=== PATIENT | female | born 2000 ===

== ENCOUNTER 2018-12-03 00:41 | Observation (INO) | payer BC ==
[2018-12-03] MEDS ORDERED: Methylergonovine 0.2 MG/1 ML Amp IM PRN (01:04)
[2018-12-03] MEDS ORDERED: Sodium Chloride 0.9% 10 ML SDV IV PRN (01:04)
[2018-12-03] MEDS ORDERED: Terbutaline 1 MG/ML SDV SUBCUT PRN (01:04)
[2018-12-03] MEDS ORDERED: Tranexamic Acid 1,000 MG in Sodium Chloride 0.9% 100 ML IV PRN (01:04)
[2018-12-03] MEDS ORDERED: Carboprost Tromethamine 250 MCG/1 ML Amp IM PRN (01:04)
[2018-12-03] MEDS ORDERED: Nalbuphine 10 MG/1 ML Vial IVPUSH PRN (01:04)
[2018-12-03] MEDS ORDERED: Ondansetron 4 MG/2 ML SDV IV PRN (01:04)
[2018-12-03] MEDS ORDERED: Misoprostol 200 MCG Tab PO PRN (01:04)
[2018-12-03] MEDS ORDERED: Sodium Chloride 0.9% 10 ML Syringe FLUSH PRN (01:04)
[2018-12-03] MEDS ORDERED: Water For Irrigation,Sterile 1,000 ML Container IRR PRN (01:04)
[2018-12-03] MEDS ORDERED: Lidocaine 1% 50 ML MDV INJECT PRN (01:04)
[2018-12-03] MEDS ORDERED: Lactated Ringers 1,000 ML IV SCH (01:15)
[2018-12-03] MEDS ORDERED: Oxytocin/0.9 % Sodium Chloride 30 UNIT/500 ML BAG IV SCH ×2 (01:15)
[2018-12-03] MEDS: Misoprostol 25 MCG (1/4 of 100 MCG) Tab VAG PRN ×5 (01:25→23:57)
[2018-12-03] MEDS: Misoprostol 25 MCG (1/4 of 100 MCG) Tab PO PRN ×6 (01:26→23:55)
[2018-12-03] MEDS ORDERED: Diphtheria,Pertussis(Acell),Tetanus Vaccine 0.5 ML Syringe IM ONE (01:50)
--- NOTE | 2018-12-03 08:25 | PCM.LDHP ---
L&D History of Present Illness - General Date of Service: 12/03/18 Admit Problem/Dx: Patient Status Order with Admit Dx/Problem 12/03/18 01:04 Patient Status [ADT] Routine Admission Diagnosis/Problem Admission Diagnosis/Problem -related examination Source of Information: Patient History Limitations: Reports: No Limitations - History of Present Illness Improves with: Reports: None Worsens with: Reports: None Associated Symptoms: Reports: N - Related Data Allergies/Adverse Reactions: Allergies Allergy/AdvReac Type Severity Reaction Status Date / Time No Known Allergies Allergy Verified 12/03/18 01:03 Past Medical History - Past Health History Medical/Surgical History: Denies Medical/Surgical History Social & Family History - Family History Family Medical History: Noncontributory - Tobacco Use Smoking Status *Q: Never Smoker Second Hand Smoke Exposure: No - Caffeine Use Caffeine Use: Reports: Soda - Recreational Drug Use Recreational Drug Use: No H&P Review of Systems - Review of Systems: Review Of Systems: See Below General: Reports: No Symptoms HEENT: Reports: No Symptoms Pulmonary: Reports: No Symptoms Cardiovascular: Reports: No Symptoms Gastrointestinal: Reports: No Symptoms Genitourinary: Reports: No Symptoms 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: Reports: No Symptoms Skin: Reports: No Symptoms Psychiatric: Reports: No Symptoms Neurological: Reports: No Symptoms Hematologic/Lymphatic: Reports: No Symptoms Immunologic: Reports: No Symptoms L&D Exam - Exam Exam: See Below - Vital Signs Weight: 80.286 kg - OB Specific Fundal Height In cm: 36 Contraction Intensity: Mild to Moderate Movement: Active Heart Tones: Present Presentation: Vertex - Lund Score Lnud Score Cervix Position: Anterior Lund Score Consistency: Soft Lund Score Effacement: >80% Lund Score Dilation: 1-2 cm Lund Score Infant's Station: -3 Lund Score Total: 8 - Exam General: Alert, Oriented HEENT: PERRLA, Conjunctiva Clear, EACs Clear, EOMI, Hearing Intact, Mucosa Moist & [place] Panorama, Nares Patent, Normal Nasal Septum, Posterior Pharynx Clear, TMs Clear Neck: Supple, Trachea Midline Lungs: Clear to Auscultation, Normal Respiratory Effort Cardiovascular: Regular Rate, Regular Rhythm GI/Abdominal Exam: Normal Bowel Sounds, Soft, Non-Tender, No Organomegaly, No Distention, No Abnormal Bruit, No Mass, Pelvis Stable Rectal Exam: Normal Exam, Normal Rectal Tone Genitourinary: Normal external exam, Normal bimanual exam, Normal speculum exam Back Exam: Normal Inspection, Full Range of Motion Extremities: Normal Inspection, Normal Range of Motion, Non-Tender, No Pedal Edema, Normal Capillary Refill Skin: Warm, Dry, Intact Neurological: Cranial Nerves Intact, Reflexes Equal Bilateral Psychiatric: Alert, Normal Affect, Normal Mood - Patient Data Lab Results Last 24 hrs: Laboratory Results - last 24 hr 12/03/18 12/03/18 Range/Units 01:30 01:30 WBC 8.83 (4.0-11.0) K/uL RBC 3.46 L (4.30-5.90) M/uL Hgb 11.4 L (12.0-16.0) g/dL Hct 32.5 L (36.0-46.0) % MCV 93.9 (80.0-98.0) fL MCH 32.9 H (27.0-32.0) pg MCHC 35.1 (31.0-37.0) g/dL RDW Std Deviation 41.5 (28.0-62.0) fl RDW Coeff of Addison 13 (11.0-15.0) % Plt Count 146 L (150-400) K/uL MPV 10.80 (7.40-12.00) fL Blood Type O POSITIVE Antibody Screen NEGATIVE Result Diagrams: 12/03/18 01:30 Problem List Initiated/Reviewed/Updated: Yes Orders Last 24hrs: Active Orders 24 hr Category Date Time Status Patient Status [ADT] Routine ADT 12/03/18 01:04 Active Bedrest Bathroom Privileges [RC] ASDIRECTED Care 12/03/18 01:04 Active Communication Order [RC] ASDIRECTED Care 12/03/18 01:04 Active Communication Order [RC] ASDIRECTED Care 12/03/18 01:04 Active Communication Order [RC] ASDIRECTED Care 12/03/18 01:04 Active Heart Tones [RC] CONTINUOUS Care 12/03/18 01:04 Active Non Stress Test [RC] PER UNIT ROUTINE Care 12/03/18 01:04 Active Notify Provider [RC] PRN Care 12/03/18 01:04 Active Notify Provider [RC] PRN Care 12/03/18 01:04 Active Notify Provider [RC] PRN Care 12/03/18 01:04 Active Notify Provider [RC] STAT Care 12/03/18 01:04 Active Oxygen Therapy [RC] ASDIRECTED Care 12/03/18 01:04 Active Vaccines to be Administered [RC] PER UNIT ROUTINE Care 12/03/18 01:50 Active Vaginal Exam [RC] PRN Care 12/03/18 01:04 Active Vaginal Exam [RC] PRN Care 12/03/18 01:04 Active Vital Signs [RC] PER UNIT ROUTINE Care 12/03/18 01:04 Active Regular Diet [DIET] Diet 12/03/18 Breakfast Active Carboprost Tromethamine [Hemabate DS] Med 12/03/18 01:04 Active 250 mcg IM ASDIRECTED PRN Lactated Ringers [Ringers, Lactated] 1,000 ml Med 12/03/18 01:15 Active IV ASDIRECTED Lidocaine 1% [Xylocaine 1%] Med 12/03/18 01:04 Active 50 ml INJECT ONETIME PRN Methylergonovine [Methergine] Med 12/03/18 01:04 Active 0.2 mg IM ASDIRECTED PRN Nalbuphine [Nubain] Med 12/03/18 01:04 Active 10 mg IVPUSH ASDIRECTED PRN Ondansetron [Zofran] Med 12/03/18 01:04 Active 4 mg IV Q6H PRN Oxytocin/0.9 % Sodium Chloride [Oxytocin 30 Unit/500 ML Med 12/03/18 01:15 Active -NS] 30 unit in 500 ml IV TITRATE Oxytocin/0.9 % Sodium Chloride [Oxytocin 30 Unit/500 ML Med 12/03/18 01:15 Active -NS] 30 unit in 500 ml IV TITRATE Sodium Chloride 0.9% [Normal Saline] Med 12/03/18 01:04 Active 10 ml IV ASDIRECTED PRN Sodium Chloride 0.9% [Saline Flush] Med 12/03/18 01:04 Active 10 ml FLUSH ASDIRECTED PRN Terbutaline [Brethine] Med 12/03/18 01:04 Active 0.25 mg SUBCUT ASDIRECTED PRN Tranexamic Acid [Cyklokapron] 1,000 mg Med 12/03/18 01:04 Active Sodium Chloride 0.9% [Normal Saline] 100 ml IV ONETIME Water For Irrigation,Sterile [Sterile Water for Med 12/03/18 01:04 Active Irrigation] 1,000 ml IRR ASDIRECTED PRN miSOPROStol [Cytotec] Med 12/03/18 01:04 Active 200 mcg PO ONETIME PRN miSOPROStol [Cytotec] Med 12/03/18 01:04 Active 25 mcg PO Q4H PRN miSOPROStol [Cytotec] Med 12/03/18 01:04 Active 25 mcg VAG Q4H PRN Scalp Electrode [WOMSER] Per Unit Routine Oth 12/03/18 01:04 Ordered Medication Administration Instruction [OM.PC] Q3H Oth 12/03/18 01:15 Ordered Peripheral IV Insertion Adult [OM.PC] Routine Oth 12/03/18 01:04 Ordered Resuscitation Status Routine Resus Stat 12/03/18 01:04 Ordered Medication Orders Carboprost Tromethamine (Hemabate Ds) 250 mcg IM ASDIRECTED PRN PRN Reason: Post Hemorrhage Lactated Ringer's (Ringers, Lactated) 1,000 mls @ 150 mls/hr IV ASDIRECTED JHONATHAN Oxytocin/Sodium Chloride (Oxytocin 30 Unit/500 Ml-Ns) 30 unit in 500 mls @ 999 mls/hr IV TITRATE JHONATHAN Oxytocin/Sodium Chloride (Oxytocin 30 Unit/500 Ml-Ns) 30 unit in 500 mls @ 2 mls/hr IV TITRATE JHONATHAN; Protocol Tranexamic Acid 1,000 mg/ (Sodium Chloride) 110 mls @ 660 mls/hr IV ONETIME PRN PRN Reason: Bleeding Lidocaine HCl (Xylocaine 1%) 50 ml INJECT ONETIME PRN PRN Reason: Laceration repair Methylergonovine Maleate (Methergine) 0.2 mg IM ASDIRECTED PRN PRN Reason: Post Hemorrhage Misoprostol (Cytotec) 200 mcg PO ONETIME PRN PRN Reason: Post Hemorrhage Misoprostol (Cytotec) 25 mcg PO Q4H PRN PRN Reason: Cervical Ripening Last Admin: 12/03/18 05:47 Dose: 25 mcg Admin: 12/03/18 01:26 Dose: 25 mcg Misoprostol (Cytotec) 25 mcg VAG Q4H PRN PRN Reason: Cervical Ripening Last Admin: 12/03/18 05:44 Dose: 25 mcg Admin: 12/03/18 01:25 Dose: 25 mcg Nalbuphine HCl (Nubain) 10 mg IVPUSH ASDIRECTED PRN PRN Reason: Pain (severe 7-10) Ondansetron HCl (Zofran) 4 mg IV Q6H PRN PRN Reason: Nausea/Vomiting Sodium Chloride (Saline Flush) 10 ml FLUSH ASDIRECTED PRN PRN Reason: Keep Vein Open Sodium Chloride (Normal Saline) 10 ml IV ASDIRECTED PRN PRN Reason: IV Use Sterile Water (Sterile Water For Irrigation) 1,000 ml IRR ASDIRECTED PRN PRN Reason: delivery Terbutaline Sulfate (Brethine) 0.25 mg SUBCUT ASDIRECTED PRN PRN Reason: Tacysystole Assessment/Plan Comment:: IUP 40 weeks admitted for social elective induction
[2018-12-04] MEDS: Misoprostol 25 MCG (1/4 of 100 MCG) Tab PO PRN (04:35)
[2018-12-04] MEDS: Misoprostol 25 MCG (1/4 of 100 MCG) Tab VAG PRN (04:37)
--- NOTE | 2018-12-04 08:16 | PCM.DCSUM1 ---
Discharge Summary - Hospital Course Free Text/Narrative:: discharge home, follow up with Dr. Robbins next Saturday (12/08/18) @ 1115, Routine labor precautions given verbal and written Diagnosis: Stroke: No Modified Vanessa Scale: No Symptoms at All Modified Vanessa Scale Score: 0 - Discharge Data Discharge Date: 12/04/18 Discharge Disposition: Home, Self-Care 01 Condition: Good - Discharge Diagnosis/Problem(s) (1) IUP (intrauterine ), incidental SNOMED Code(s): 66068941 ICD Code: Z34.90 - ENCNTR FOR SUPRVSN OF NORMAL , UNSP, UNSP TRIMESTER Status: Acute Priority: High Current Visit: Yes - Patient Instructions Diet: Usual Diet as Tolerated Activity: As Tolerated Driving: May Drive Today Showering/Bathing: May Shower - Discharge Plan *PRESCRIPTION DRUG MONITORING PROGRAM REVIEWED*: Not Applicable *COPY OF PRESCRIPTION DRUG MONITORING REPORT IN PATIENT AGNES: Not Applicable Oxygen Therapy Mode: Room Air Referrals: [facility] [Outside] Rigoberto Robbins MD [Physician] - 01/14/19 3:00 pm - Discharge Summary/Plan Comment DC Time >30 min.: Yes - General Info Date of Service: 12/04/18 Admission Dx/Problem (Free Text: Patient Status Order with Admit Dx/Problem 12/03/18 01:04 Patient Status [ADT] Routine Admission Diagnosis/Problem Admission Diagnosis/Problem -related examination Functional Status: Reports: Pain Controlled - Review of Systems General: Reports: No Symptoms HEENT: Reports: No Symptoms Pulmonary: Reports: No Symptoms Cardiovascular: Reports: No Symptoms Gastrointestinal: Reports: No Symptoms Genitourinary: Reports: No Symptoms 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: Reports: No Symptoms Skin: Reports: No Symptoms Neurological: Reports: No Symptoms Psychiatric: Reports: No Symptoms - Patient Data Weight - Most Recent: 80.286 kg Med Orders - Current: Current Medications Carboprost Tromethamine (Hemabate Ds) 250 mcg IM ASDIRECTED PRN PRN Reason: Post Hemorrhage Lactated Ringer's (Ringers, Lactated) 1,000 mls @ 150 mls/hr IV ASDIRECTED JHONATHAN Oxytocin/Sodium Chloride (Oxytocin 30 Unit/500 Ml-Ns) 30 unit in 500 mls @ 999 mls/hr IV TITRATE JHONATHAN Oxytocin/Sodium Chloride (Oxytocin 30 Unit/500 Ml-Ns) 30 unit in 500 mls @ 2 mls/hr IV TITRATE JHONATHAN; Protocol Tranexamic Acid 1,000 mg/ (Sodium Chloride) 110 mls @ 660 mls/hr IV ONETIME PRN PRN Reason: Bleeding Lidocaine HCl (Xylocaine 1%) 50 ml INJECT ONETIME PRN PRN Reason: Laceration repair Methylergonovine Maleate (Methergine) 0.2 mg IM ASDIRECTED PRN PRN Reason: Post Hemorrhage Misoprostol (Cytotec) 200 mcg PO ONETIME PRN PRN Reason: Post Hemorrhage Misoprostol (Cytotec) 25 mcg PO Q4H PRN PRN Reason: Cervical Ripening Last Admin: 12/04/18 04:35 Dose: 25 mcg Misoprostol (Cytotec) 25 mcg VAG Q4H PRN PRN Reason: Cervical Ripening Last Admin: 12/04/18 04:37 Dose: 25 mcg Nalbuphine HCl (Nubain) 10 mg IVPUSH ASDIRECTED PRN PRN Reason: Pain (severe 7-10) Ondansetron HCl (Zofran) 4 mg IV Q6H PRN PRN Reason: Nausea/Vomiting Sodium Chloride (Saline Flush) 10 ml FLUSH ASDIRECTED PRN PRN Reason: Keep Vein Open Sodium Chloride (Normal Saline) 10 ml IV ASDIRECTED PRN PRN Reason: IV Use Sterile Water (Sterile Water For Irrigation) 1,000 ml IRR ASDIRECTED PRN PRN Reason: delivery Terbutaline Sulfate (Brethine) 0.25 mg SUBCUT ASDIRECTED PRN PRN Reason: Tacysystole Discontinued Medications Diphtheria/Tetanus/Acell Pertussis (Adacel) 0.5 ml IM .ONCE ONE Stop: 12/03/18 01:51 - Exam General: Reports: Alert, Oriented, Cooperative, No Acute Distress Lungs: Reports: Clear to Auscultation, Normal Respiratory Effort Cardiovascular: Reports: Regular Rate, Regular Rhythm GI/Abdominal Exam: Soft, Non-Tender (Female) Exam: Deferred Rectal (Female) Exam: Deferred Back Exam: Reports: Full Range of Motion Extremities: Normal Range of Motion Skin: Reports: Warm, Dry, Intact Neurological: Reports: No New Focal Deficit Psy/Mental Status: Reports: Alert, Normal Affect, Normal Mood
== END 2018-12-04 08:40 | disposition home or self-care (01) ==
LOC: MW.OBCHECK 00:41 → MW.OB 01:02
PROVIDERS: ADMIT Obstetrics & Gynecology; ATTEND Obstetrics & Gynecology
DX: Z34.93 Encounter for supervision of normal pregnancy, unspecified, third trimester (principal); Z3A.40 40 weeks gestation of pregnancy
CPT/HCPCS: 36415; 59025; 85027; 86850; 86900; 86901; A9270; G0378

== ENCOUNTER 2018-12-12 09:45 | Inpatient (IN) | payer BC ==
[2018-12-12] MEDS ORDERED: Butorphanol 1 MG/ML SDV IVPUSH PRN (11:11)
[2018-12-12] MEDS ORDERED: Sodium Chloride 0.9% 10 ML SDV IV PRN (11:11)
[2018-12-12] MEDS ORDERED: Sodium Chloride 0.9% 2.5 ML Syringe FLUSH PRN (11:11)
[2018-12-12] MEDS ORDERED: Water For Irrigation,Sterile 1,000 ML Container IRR PRN (11:11)
[2018-12-12] MEDS ORDERED: Tranexamic Acid 1,000 MG in Sodium Chloride 0.9% 100 ML IV PRN (11:11)
[2018-12-12] MEDS ORDERED: Lidocaine 1% 50 ML MDV INJECT PRN (11:11)
[2018-12-12] MEDS ORDERED: Methylergonovine 0.2 MG/1 ML Amp IM PRN (11:11)
[2018-12-12] MEDS ORDERED: Sodium Chloride 0.9% 10 ML Syringe FLUSH PRN (11:11)
[2018-12-12] MEDS ORDERED: Misoprostol 200 MCG Tab PO PRN (11:11)
[2018-12-12] MEDS ORDERED: Nalbuphine 10 MG/1 ML Vial IVPUSH PRN (11:11)
[2018-12-12] MEDS ORDERED: Carboprost Tromethamine 250 MCG/1 ML Amp IM PRN (11:11)
[2018-12-12] MEDS ORDERED: Oxytocin/0.9 % Sodium Chloride 30 UNIT/500 ML BAG IV SCH ×2 (11:15→11:30)
[2018-12-12] MEDS ORDERED: Terbutaline 1 MG/ML SDV SUBCUT PRN (11:19)
[2018-12-12] MEDS: Lactated Ringers 1,000 ML IV SCH ×3 (12:02→23:50)
[2018-12-12] MEDS ORDERED: Ondansetron 4 MG/2 ML SDV IVPUSH PRN (16:05)
[2018-12-13] MEDS ORDERED: Ropivacaine HCl/PF 100 ML ONE (00:02)
--- NOTE | 2018-12-13 00:25 | PCM.PREANE ---
Preanesthetic Assessment - Anesthesia/Transfusion/Family Hx Anesthesia History: No Prior Anesthesia Family History of Anesthesia Reaction: No Transfusion History: No Prior Transfusion(s) - Review of Systems General: No Symptoms Pulmonary: No Symptoms Cardiovascular: No Symptoms, Lightheadedness Gastrointestinal: No Symptoms Neurological: No Symptoms Other: Reports: None - Physical Assessment NPO Status Date: 12/12/18 NPO Status Time: 20:00 Height: 1.75 m Weight: 81.193 kg - Lab Values: Laboratory Last Values WBC 10.11 K/uL (4.0-11.0) 12/12/18 11:45 RBC 3.73 M/uL (4.30-5.90) L 12/12/18 11:45 Hgb 12.0 g/dL (12.0-16.0) 12/12/18 11:45 Hct 34.9 % (36.0-46.0) L 12/12/18 11:45 MCV 93.6 fL (80.0-98.0) 12/12/18 11:45 MCH 32.2 pg (27.0-32.0) H 12/12/18 11:45 MCHC 34.4 g/dL (31.0-37.0) 12/12/18 11:45 RDW Std Deviation 44.2 fl (28.0-62.0) 12/12/18 11:45 RDW Coeff of Addison 13 % (11.0-15.0) 12/12/18 11:45 Plt Count 151 K/uL (150-400) 12/12/18 11:45 MPV 10.10 fL (7.40-12.00) 12/12/18 11:45 Nucleated RBC % 0.0 /100WBC 12/12/18 11:45 Nucleated RBCs # 0 K/uL 12/12/18 11:45 Membrane Rupture POSITIVE 12/12/18 10:04 Blood Type O POSITIVE 12/12/18 11:45 Antibody Screen NEGATIVE 12/12/18 11:45 - Allergies Allergies/Adverse Reactions: Allergies Allergy/AdvReac Type Severity Reaction Status Date / Time No Known Allergies Allergy Verified 12/03/18 01:03 PreAnesthesia Questionnaire - Past Health History Medical/Surgical History: Denies Medical/Surgical History HEENT History: Reports: None Cardiovascular History: Reports: None Respiratory History: Reports: None Gastrointestinal History: Reports: None Genitourinary History: Reports: None GROUP COUNSELOR History: Reports: 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 History: Reports: Fracture Neurological History: Reports: Concussion Psychiatric History: Reports: None Endocrine/Metabolic History: Reports: None Hematologic History: Reports: None Immunologic History: Reports: None Oncologic (Cancer) History: Reports: None Dermatologic History: Reports: None - Infectious Disease History Infectious Disease History: Reports: Chicken Pox - Past Surgical History HEENT Surgical History: Reports: None Respiratory Surgical History: Reports: None GI Surgical History: Reports: None Female Surgical History: Reports: None 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 Surgical History: Reports: None - SUBSTANCE USE Smoking Status *Q: Former Smoker Tobacco Use Within Last Twelve Months: Cigarettes Second Hand Smoke Exposure: No Recreational Drug Use History: No - HOME MEDS Home Medications: Home Meds . [No Known Home Meds] 12/12/18 [History] - CURRENT (IN HOUSE) MEDS Current Meds: Current Medications Butorphanol Tartrate (Stadol) 1 mg IVPUSH Q1H PRN PRN Reason: Pain Last Admin: 12/12/18 15:21 Dose: 1 mg Carboprost Tromethamine (Hemabate Ds) 250 mcg IM ASDIRECTED PRN PRN Reason: Post Hemorrhage Tranexamic Acid 1,000 mg/ (Sodium Chloride) 110 mls @ 660 mls/hr IV ONETIME PRN PRN Reason: Bleeding Lactated Ringer's (Ringers, Lactated) 1,000 mls @ 150 mls/hr IV ASDIRECTED JHONATHAN Last Admin: 12/12/18 16:10 Dose: 150 mls/hr Oxytocin/Sodium Chloride (Oxytocin 30 Unit/500 Ml-Ns) 30 unit in 500 mls @ 500 mls/hr IV TITRATE JHONATHAN Oxytocin/Sodium Chloride (Oxytocin 30 Unit/500 Ml-Ns) 30 unit in 500 mls @ 2 mls/hr IV TITRATE JHONATHAN; Protocol Last Titration: 12/12/18 22:30 Dose: 4 munits/min, 4 mls/hr Lidocaine HCl (Xylocaine 1%) 50 ml INJECT ONETIME PRN PRN Reason: Laceration repair Methylergonovine Maleate (Methergine) 0.2 mg IM ASDIRECTED PRN PRN Reason: Post Hemorrhage Misoprostol (Cytotec) 200 mcg PO ONETIME PRN PRN Reason: Post Hemorrhage Nalbuphine HCl (Nubain) 10 mg IVPUSH Q1H PRN PRN Reason: Pain (severe 7-10) Ondansetron HCl (Zofran) 4 mg IVPUSH Q6H PRN PRN Reason: Nausea/Vomiting Last Admin: 12/12/18 23:14 Dose: 4 mg Sodium Chloride (Saline Flush) 10 ml FLUSH ASDIRECTED PRN PRN Reason: Keep Vein Open Sodium Chloride (Saline Flush) 2.5 ml FLUSH ASDIRECTED PRN PRN Reason: Keep Vein Open Sodium Chloride (Normal Saline) 10 ml IV ASDIRECTED PRN PRN Reason: IV Use Sterile Water (Sterile Water For Irrigation) 1,000 ml IRR ASDIRECTED PRN PRN Reason: delivery Terbutaline Sulfate (Brethine) 0.25 mg SUBCUT ASDIRECTED PRN PRN Reason: Tacysystole Discontinued Medications Ropivacaine (Naropin 0.2%) Confirm Administered Dose 100 mls @ as directed .ROUTE .[facility] ONE Stop: 12/13/18 00:03
--- NOTE | 2018-12-13 00:28 | PCM.PRNOTE ---
- Free Text/Narrative Note: Anes Note 0005 Patient requests epidural for L&D. Sitting position. Level L3-L4, midline approach. Sterile technique. Chloroprep scrub to lumbar area. Sterile fenestrated dape applied. Epidural space easily achieved single attempt with ease using LORI technique. Cath threaded 4 cm with ease. Sterile dressing applied. 0010 test 3 cc 1.5% lido with epi negative 0012 load 10 cc 0.2% ropivicaine in slow divided doses. 0017 pump started. Same solution at 8 cc hr with 6 cc q 20 min prn bolus. Patient reports excellent analgesia. Time with patient [id number] Tiago Galicia CLASSIFIED AD CLERK
[2018-12-13] MEDS ORDERED: Sodium Chloride 0.9% 1,000 ML IRR SCH (03:15)
[2018-12-13] MEDS: Lactated Ringers 1,000 ML IV SCH (06:04)
--- NOTE | 2018-12-13 06:55 | PCM.POSTAN ---
POST ANESTHESIA ASSESSMENT - MENTAL STATUS Mental Status: Alert - RESPIRATORY Respiratory Status: Respiratory Rate WNL - CARDIOVASCULAR CV Status: Pulse Rate WNL - GASTROINTESTINAL GI Status: No Symptoms - POST OP HYDRATION Hydration Status: Adequate & Stable
[2018-12-13] MEDS ORDERED: ceFAZolin 1 GM Vial ONE (07:47)
[2018-12-13] MEDS ORDERED: Sodium Chloride 0.9% 20 ML ONE (07:47)
[2018-12-13] MEDS ORDERED: Ondansetron 4 MG/2 ML SDV ONE (07:50)
[2018-12-13] MEDS ORDERED: Oxytocin 10 Units/1 ML SDV ONE (07:50)
[2018-12-13] MEDS ORDERED: fentaNYL 100 MCG/2 ML SDV ONE (07:51)
[2018-12-13] MEDS ORDERED: Morphine PF 10 MG/10 ML SDV ONE (07:51)
[2018-12-13] MEDS ORDERED: Octyl 2-Cyanoacrylate 1 Tube ONE (07:59)
[2018-12-13] MEDS ORDERED: fentaNYL 100 MCG/2 ML SDV IVPUSH PRN (08:16)
[2018-12-13] MEDS ORDERED: Acetaminophen/oxyCODONE 325-5 MG Tab PO PRN (08:16)
[2018-12-13] MEDS ORDERED: Nalbuphine 10 MG/1 ML Vial IVPUSH PRN (08:16)
--- NOTE | 2018-12-13 08:46 | PCM.OPNOTE ---
- General Post-Op/Procedure Note Date of Surgery/Procedure: 12/13/18 Operative Procedure(s): primary low transverse Findings: Liveborn female Pre Op Diagnosis: 41 3/7 weeks, arrest of dilatation Post-Op Diagnosis: Same Primary Surgeon: Patricia Sofia Secondary Surgeon: China Hooks Anesthesia Provider: Matthew Gastelum Homicide Investigator: Tiago Galicia Pathology: none Fluid Replacement, Intraop: 1,500 Output, Urine Amount: 300 EBL in mLs: 600 Complications: None Known Condition: Good
[2018-12-13] MEDS ORDERED: Bisacodyl 10 MG Supp RECTAL PRN (08:48)
[2018-12-13] MEDS ORDERED: diphenhydrAMINE 50 MG/ML SDV IVPUSH PRN (08:48)
[2018-12-13] MEDS ORDERED: Lanolin 100% Cream 7 GM Tube TOP PRN (08:48)
[2018-12-13] MEDS ORDERED: Ondansetron 4 MG/2 ML SDV IVPUSH PRN (08:48)
[2018-12-13] MEDS ORDERED: Lactated Ringers 1,000 ML IV SCH (09:00)
[2018-12-13] MEDS: Ketorolac 30 MG/ML SDV IVPUSH SCH ×3 (09:33→21:20)
--- NOTE | 2018-12-13 09:58 | OR ---
SURGEON: Patricia Sofia M.D. DATE OF PROCEDURE: 12/13/2018 PREOPERATIVE DIAGNOSES: 41 and 3/7th weeks' intrauterine . Arrest of dilatation. POSTOPERATIVE DIAGNOSES: 41 and 3/7th weeks' intrauterine . Arrest of dilatation. PROCEDURE: Primary low-transverse section. [employer] ATTENDANT: China Hooks fist assist student. ANESTHESIA: Epidural. ESTIMATED BLOOD LOSS: 600 mL. FLUIDS: 1500 mL crystalloid. URINE OUTPUT: 200 mL. FINDINGS: Liveborn female. scores 9 and 9, weighing 3510 g. Normal-appearing uterus, tubes, and ovaries. COMPLICATIONS: None known. DISPOSITION: Stable to Recovery. BRIEF HISTORY: This is a 18-year-old female. She is a patient of Dr. Robbins for whom I am covering as locums. She is G1, P0. She presents at 41 and 3/7th weeks' gestation with spontaneous rupture of membranes at approximately 9:30 a.m. on 12/12/2018. She was started on Pitocin. She was 1 cm, 50%, -2 station. Balloon catheter was placed in the cervix, filling to 60 mL internal-external balloon. She had previously received up to 7 doses of Cytotec several days previously and had absolutely no cervical change; therefore, Cytotec was not used. The balloon was expelled and at this point, she was 4 to 5 cm dilated. She was continued on Pitocin. Intrauterine pressure catheter was placed, and she progressed to 5 cm and then over time period with amnioinfusion and Pitocin being turned on and off due to heart tones, she progressed to 6 cm. Over the following 10 hours, she did have adequate labor and no further dilatation beyond 6 cm. Therefore, I did recommend proceeding with a primary low- transverse delivery with risks discussed including bleeding; infection; injury to bowel, bladder, blood vessels, or other organs; risk of thromboembolic event; and risk of anesthesia. Understanding all these risks, she does desire to proceed. DESCRIPTION OF PROCEDURE: With the patient in left tilt position, under adequate spinal analgesia, the abdomen was prepped with chlorhexidine and draped in the usual fashion for abdominal surgery. SCDs were in place. Campa catheter had been placed, and she was given 2 g of Ancef IV. After documentation of adequate analgesia, a transverse curvilinear incision was made over the lower uterine segment and carried through the subcutaneous tissue to the fascia, which was scored transversely in the midline. The fascial incision was extended laterally using curved Hooks scissors. The fascia was elevated from the underlying rectus muscle using sharp and blunt dissections. The rectus muscles were bluntly in the midline. A finger was used to enter the peritoneal cavity. The incision was extended using sharp and blunt dissections. The Juancho O retractor was placed. The visceroperitoneum of the lower uterine segment was incised to develop an adequate bladder flap and a transverse curvilinear incision was made over the lower uterine segment and a finger was used to enter the amniotic cavity. Clear fluid was noted. The head was delivered via the uterine incision and with fundal pressure, the head and shoulders were delivered without any difficulty. The was bulb suctioned by nose and mouth. After the cord had ceased to pulsate, it was doubly clamped and cut, and the infant was handed to the sliver lap tender in attendance at delivery. The was a liveborn female, scores of 9 and 9, weighing 3510 g. Cord blood was collected for cord ABGs as well as routine cord blood sampling. Pitocin had been initiated after cord clamp to assist with delivery of the placenta, which was delivered spontaneously, Schultze intact. The uterus was cleaned with a dry laparotomy tape. The uterine incision was closed with a running lock suture of 0 Polysorb followed by an imbricating layer of 0 Polysorb. The uterine incision was carefully inspected and was hemostatic. The pericolic gutters and posterior cul-de-sac were cleaned with a wet laparotomy tape. Tubes and ovaries were inspected and appeared normal. The uterine incision was again inspected and was hemostatic. The Juancho O retractor was removed. The final inspection of the incision confirmed hemostasis. The peritoneum and rectus muscles were loosely approximated in midline using a running mattress suture of 0 Polysorb. The posterior aspect of the fascia was inspected and was hemostatic. The fascial incision was closed with a running suture of 0 Polysorb. Subcutaneous tissue was irrigated. Any areas of bleeding that were noted were cauterized. The skin was closed with a running subcuticular suture of 3-0 Monocryl followed by Dermabond. Final sponge, needle, and instrument counts were reported as correct. There were no complications. The patient was transferred to Recovery in good condition. ELIEL GLASS /[id number] GUILLERMINA
--- NOTE | 2018-12-13 12:49 | PCM.POSTAN ---
POST ANESTHESIA ASSESSMENT - RESPIRATORY Respiratory Status: Respiratory Rate WNL - CARDIOVASCULAR CV Status: Pulse Rate WNL - GASTROINTESTINAL GI Status: No Symptoms - POST OP HYDRATION Hydration Status: Adequate & Stable
--- NOTE | 2018-12-13 12:49 | PCM48HPAN ---
Post Anesthesia Note - EVALUATION WITHIN 48HRS OF ANESTHETIC Vital Signs in Normal Range: Yes Patient Participated in Evaluation: Yes Respiratory Function Stable: Yes Airway Patent: Yes Cardiovascular Function Stable: Yes Hydration Status Stable: Yes Pain Control Satisfactory: Yes Nausea and Vomiting Control Satisfactory: Yes Mental Status Recovered: Yes Resp Rate: 17
[2018-12-13] MEDS: Docusate Sodium 100 MG Cap PO SCH (21:20)
[2018-12-14] MEDS: Ketorolac 30 MG/ML SDV IVPUSH SCH ×2 (03:25→09:11)
[2018-12-14] MEDS: Docusate Sodium 100 MG Cap PO SCH ×2 (09:11→21:32)
--- NOTE | 2018-12-14 10:20 | PCM.PNPP ---
- General Info Date of Service: 12/14/18 Functional Status: Reports: Pain Controlled - Review of Systems General: Reports: No Symptoms HEENT: Reports: No Symptoms Pulmonary: Reports: No Symptoms Cardiovascular: Reports: No Symptoms Gastrointestinal: Reports: No Symptoms Genitourinary: Reports: No Symptoms 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: Reports: No Symptoms Skin: Reports: No Symptoms Neurological: Reports: No Symptoms Psychiatric: Reports: No Symptoms - General Info Date of Service: 12/14/18 - Patient Data Vital Signs - Most Recent: Last Vital Signs Temp 36.0 C 12/14/18 07:00 Pulse 63 12/14/18 07:00 Resp 16 12/14/18 08:00 BP 121/71 12/14/18 07:00 Pulse Ox 99 12/14/18 08:00 Weight - Most Recent: 81.193 kg I&O - Last 24 Hours: Intake & Output 12/13/18 12/14/18 12/14/18 22:59 06:59 14:59 Intake Total 1806 Output Total 425 2450 Balance -425 -644 Lab Results - Last 24 Hours: Laboratory Results - last 24 hr 12/14/18 Range/Units 05:53 Hgb 9.4 L (12.0-16.0) g/dL Hct 27.5 L (36.0-46.0) % Med Orders - Current: Current Medications Bisacodyl (Dulcolax) 10 mg RECTAL ONETIME PRN PRN Reason: Constipation Diphenhydramine HCl (Benadryl) 25 mg IVPUSH Q6H PRN PRN Reason: Itching or Nausea Docusate Sodium (Colace) 100 mg PO BID [facility] Last Admin: 12/14/18 09:11 Dose: 100 mg Emollient Ointment (Lansinoh Hpa) 0 gm TOP ASDIRECTED PRN PRN Reason: Sore Nipples Lactated Ringer's (Ringers, Lactated) 1,000 mls @ 125 mls/hr IV ASDIRECTED [facility] Last Admin: 12/13/18 17:13 Dose: 125 mls/hr Ibuprofen (Motrin) 800 mg PO Q8H PRN PRN Reason: mild pain or fever Ondansetron HCl (Zofran) 4 mg IVPUSH Q4H PRN PRN Reason: Nausea/Vomiting Last Admin: 12/13/18 14:50 Dose: 4 mg Oxycodone/Acetaminophen (Percocet 325-5 Mg) 1 tab PO ONETIME PRN PRN Reason: Pain (moderate 4-6) Oxycodone/Acetaminophen (Percocet 325-5 Mg) 1 tab PO Q4H PRN PRN Reason: Pain (moderate 4-6) Oxycodone/Acetaminophen (Percocet 325-5 Mg) 2 tab PO Q4H PRN PRN Reason: Pain (moderate 4-6) Discontinued Medications Butorphanol Tartrate (Stadol) 1 mg IVPUSH Q1H PRN PRN Reason: Pain Last Admin: 12/12/18 15:21 Dose: 1 mg Carboprost Tromethamine (Hemabate Ds) 250 mcg IM ASDIRECTED PRN PRN Reason: Post Hemorrhage Cefazolin Sodium (Ancef) Confirm Administered Dose 2 gm .ROUTE .[facility]-MED ONE Stop: 12/13/18 07:48 Fentanyl (Sublimaze) Confirm Administered Dose 100 mcg .ROUTE .ST[facility]-MED ONE Stop: 12/13/18 07:52 Fentanyl (Sublimaze) 50 mcg IVPUSH Q5M PRN PRN Reason: Pain (severe 7-10) Stop: 12/14/18 08:16 Tranexamic Acid 1,000 mg/ (Sodium Chloride) 110 mls @ 660 mls/hr IV ONETIME PRN PRN Reason: Bleeding Lactated Ringer's (Ringers, Lactated) 1,000 mls @ 150 mls/hr IV ASDIRECTED [facility] Last Admin: 12/13/18 06:04 Dose: 150 mls/hr Oxytocin/Sodium Chloride (Oxytocin 30 Unit/500 Ml-Ns) 30 unit in 500 mls @ 500 mls/hr IV TITRATE [facility] Oxytocin/Sodium Chloride (Oxytocin 30 Unit/500 Ml-Ns) 30 unit in 500 mls @ 2 mls/hr IV TITRATE [facility]; Protocol Last Titration: 12/13/18 06:56 Dose: 5 munits/min, 5 mls/hr Ropivacaine (Naropin 0.2%) Confirm Administered Dose 100 mls @ as directed .ROUTE [facility] Stop: 12/13/18 00:03 Sodium Chloride (Sodium Chloride 0.9%) 1,000 mls @ 999 mls/hr IRR ASDIRECTED [facility] Sodium Chloride (Normal Saline) Confirm Administered Dose 20 mls @ as directed .ROUTE .ST[facility]-MED ONE Stop: 12/13/18 07:48 Ketorolac Tromethamine (Toradol) 30 mg IVPUSH Q6H [facility] Stop: 12/14/18 09:01 Last Admin: 12/14/18 09:11 Dose: 30 mg Lidocaine HCl (Xylocaine 1%) 50 ml INJECT ONETIME PRN PRN Reason: Laceration repair Methylergonovine Maleate (Methergine) 0.2 mg IM ASDIRECTED PRN PRN Reason: Post Hemorrhage Misoprostol (Cytotec) 200 mcg PO ONETIME PRN PRN Reason: Post Hemorrhage Morphine Sulfate (Duramorph Pf) Confirm Administered Dose 10 mg .ROUTE .STK-MED ONE Stop: 12/13/18 07:52 Nalbuphine HCl (Nubain) 10 mg IVPUSH Q1H PRN PRN Reason: Pain (severe 7-10) Nalbuphine HCl (Nubain) 2.5 mg IVPUSH Q3H PRN PRN Reason: Pruritis Stop: 12/14/18 08:16 Octyl Cyanoacrylate (Dermabond Advance) Confirm Administered Dose 1 applic .ROUTE .STK-MED ONE Stop: 12/13/18 08:00 Ondansetron HCl (Zofran) 4 mg IVPUSH Q6H PRN PRN Reason: Nausea/Vomiting Last Admin: 12/12/18 23:14 Dose: 4 mg Ondansetron HCl (Zofran) Confirm Administered Dose 4 mg .ROUTE .STK-MED ONE Stop: 12/13/18 07:51 Oxytocin (Pitocin) Confirm Administered Dose 20 unit .ROUTE .STK-MED ONE Stop: 12/13/18 07:51 Sodium Chloride (Saline Flush) 10 ml FLUSH ASDIRECTED PRN PRN Reason: Keep Vein Open Sodium Chloride (Saline Flush) 2.5 ml FLUSH ASDIRECTED PRN PRN Reason: Keep Vein Open Sodium Chloride (Normal Saline) 10 ml IV ASDIRECTED PRN PRN Reason: IV Use Sterile Water (Sterile Water For Irrigation) 1,000 ml IRR ASDIRECTED PRN PRN Reason: delivery Terbutaline Sulfate (Brethine) 0.25 mg SUBCUT ASDIRECTED PRN PRN Reason: Tacysystole - Interaction Infant Disposition, : [place] at Bedside Interaction: Holding Infant Feeding: Attempted ; Nursed Fair/Poor Support Person: Significant Other - Recovery Exam Fundal Tone: Firm Fundal Level: At Umbilicus Fundal Placement: Midline Lochia Amount: Scant Lochia Color: Rubra/Red Perineum Description: Intact, Minimal Bruising/Swelling Episiotomy/Laceration: None Bladder Status: Voiding Urinary Elimination: Indwelling Catheter - Exam General: Alert, Oriented HEENT: Pupils Equal Neck: Supple Lungs: Clear to Auscultation, Normal Respiratory Effort Cardiovascular: Regular Rate, Regular Rhythm GI/Abdominal Exam: Normal Bowel Sounds, Soft, Non-Tender, No Organomegaly, No Distention, No Abnormal Bruit, No Mass, Pelvis Stable Extremities: Normal Inspection, Normal Range of Motion, Non-Tender, No Pedal Edema, Normal Capillary Refill Skin: Warm, Dry, Intact Wound/Incisions: Healing Well Neurological: No New Focal Deficit Psy/Mental Status: Alert, Normal Affect, Normal Mood - Problem List Review Problem List Initiated/Reviewed/Updated: Yes - Assessment Assessment:: doing well.
[2018-12-14] MEDS: Ibuprofen 800 MG Tab PO PRN ×2 (15:07→23:46)
[2018-12-14] MEDS: Acetaminophen/oxyCODONE 325-5 MG Tab PO PRN ×2 (17:08→21:32)
[2018-12-15] MEDS: Acetaminophen/oxyCODONE 325-5 MG Tab PO PRN ×3 (02:18→12:18)
--- NOTE | 2018-12-15 08:01 | PCM.DCSUM1 ---
Discharge Summary - Hospital Course Diagnosis: Stroke: No - Discharge Data Discharge Date: 12/15/18 Discharge Disposition: Home, Self-Care 01 Condition: Good - Patient Summary/Data Operative Procedure(s) Performed: primary low transverse - Patient Instructions Diet: Usual Diet as Tolerated Activity: As Tolerated Driving: Do Not Drive Showering/Bathing: May Shower Wound/Incision Care: Keep Operative Site/Wound Site Clean and Dry Notify Provider of: Fever, Increased Pain, Nausea and/or Vomiting - Discharge Plan Home Medications: Home Meds . [No Known Home Meds] 12/12/18 [History] - Discharge Summary/Plan Comment DC Time >30 min.: Yes - General Info Date of Service: 12/15/18 Functional Status: Reports: Pain Controlled - Review of Systems General: Reports: No Symptoms HEENT: Reports: No Symptoms Pulmonary: Reports: No Symptoms Cardiovascular: Reports: No Symptoms Gastrointestinal: Reports: No Symptoms Genitourinary: Reports: No Symptoms 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: Reports: No Symptoms Skin: Reports: No Symptoms Neurological: Reports: No Symptoms Psychiatric: Reports: No Symptoms - Patient Data Vitals - Most Recent: Last Vital Signs Temp 36.4 C 12/15/18 04:53 Pulse 89 12/15/18 04:53 Resp 17 12/15/18 04:53 BP 111/72 12/15/18 04:53 Pulse Ox 98 12/15/18 04:53 Weight - Most Recent: 81.193 kg Med Orders - Current: Current Medications Bisacodyl (Dulcolax) 10 mg RECTAL ONETIME PRN PRN Reason: Constipation Diphenhydramine HCl (Benadryl) 25 mg IVPUSH Q6H PRN PRN Reason: Itching or Nausea Docusate Sodium (Colace) 100 mg PO BID [facility] Last Admin: 12/14/18 21:32 Dose: 100 mg Emollient Ointment (Lansinoh Hpa) 0 gm TOP ASDIRECTED PRN PRN Reason: Sore Nipples Last Admin: 12/14/18 12:37 Dose: 1 tube Lactated Ringer's (Ringers, Lactated) 1,000 mls @ 125 mls/hr IV ASDIRECTED [facility] Last Admin: 12/13/18 17:13 Dose: 125 mls/hr Ibuprofen (Motrin) 800 mg PO Q8H PRN PRN Reason: mild pain or fever Last Admin: 12/14/18 23:46 Dose: 800 mg Ondansetron HCl (Zofran) 4 mg IVPUSH Q4H PRN PRN Reason: Nausea/Vomiting Last Admin: 12/13/18 14:50 Dose: 4 mg Oxycodone/Acetaminophen (Percocet 325-5 Mg) 1 tab PO ONETIME PRN PRN Reason: Pain (moderate 4-6) Oxycodone/Acetaminophen (Percocet 325-5 Mg) 1 tab PO Q4H PRN PRN Reason: Pain (moderate 4-6) Last Admin: 12/15/18 02:18 Dose: 1 tab Oxycodone/Acetaminophen (Percocet 325-5 Mg) 2 tab PO Q4H PRN PRN Reason: Pain (moderate 4-6) Discontinued Medications Butorphanol Tartrate (Stadol) 1 mg IVPUSH Q1H PRN PRN Reason: Pain Last Admin: 12/12/18 15:21 Dose: 1 mg Carboprost Tromethamine (Hemabate Ds) 250 mcg IM ASDIRECTED PRN PRN Reason: Post Hemorrhage Cefazolin Sodium (Ancef) Confirm Administered Dose 2 gm .ROUTE .STK-MED ONE Stop: 12/13/18 07:48 Fentanyl (Sublimaze) Confirm Administered Dose 100 mcg .ROUTE .STK-MED ONE Stop: 12/13/18 07:52 Fentanyl (Sublimaze) 50 mcg IVPUSH Q5M PRN PRN Reason: Pain (severe 7-10) Stop: 12/14/18 08:16 Tranexamic Acid 1,000 mg/ (Sodium Chloride) 110 mls @ 660 mls/hr IV ONETIME PRN PRN Reason: Bleeding Lactated Ringer's (Ringers, Lactated) 1,000 mls @ 150 mls/hr IV ASDIRECTED [facility] Last Admin: 12/13/18 06:04 Dose: 150 mls/hr Oxytocin/Sodium Chloride (Oxytocin 30 Unit/500 Ml-Ns) 30 unit in 500 mls @ 500 mls/hr IV TITRATE [facility] Oxytocin/Sodium Chloride (Oxytocin 30 Unit/500 Ml-Ns) 30 unit in 500 mls @ 2 mls/hr IV TITRATE [facility]; Protocol Last Titration: 12/13/18 06:56 Dose: 5 munits/min, 5 mls/hr Ropivacaine (Naropin 0.2%) Confirm Administered Dose 100 mls @ as directed .ROUTE .[facility] ONE Stop: 12/13/18 00:03 Sodium Chloride (Sodium Chloride 0.9%) 1,000 mls @ 999 mls/hr IRR ASDIRECTED [facility] Sodium Chloride (Normal Saline) Confirm Administered Dose 20 mls @ as directed .ROUTE .[facility] ONE Stop: 12/13/18 07:48 Ketorolac Tromethamine (Toradol) 30 mg IVPUSH Q6H [facility] Stop: 12/14/18 09:01 Last Admin: 12/14/18 09:11 Dose: 30 mg Lidocaine HCl (Xylocaine 1%) 50 ml INJECT ONETIME PRN PRN Reason: Laceration repair Methylergonovine Maleate (Methergine) 0.2 mg IM ASDIRECTED PRN PRN Reason: Post Hemorrhage Misoprostol (Cytotec) 200 mcg PO ONETIME PRN PRN Reason: Post Hemorrhage Morphine Sulfate (Duramorph Pf) Confirm Administered Dose [address] ONE Stop: 12/13/18 07:52 Nalbuphine HCl (Nubain) 10 mg IVPUSH Q1H PRN PRN Reason: Pain (severe 7-10) Nalbuphine HCl (Nubain) 2.5 mg IVPUSH Q3H PRN PRN Reason: Pruritis Stop: 12/14/18 08:16 Octyl Cyanoacrylate (Dermabond Advance) Confirm Administered Dose [address] ONE Stop: 12/13/18 08:00 Ondansetron HCl (Zofran) 4 mg IVPUSH Q6H PRN PRN Reason: Nausea/Vomiting Last Admin: 12/12/18 23:14 Dose: 4 mg Ondansetron HCl (Zofran) Confirm Administered Dose [address] ONE Stop: 12/13/18 07:51 Oxytocin (Pitocin) Confirm Administered Dose [address] ONE Stop: 12/13/18 07:51 Sodium Chloride (Saline Flush) 10 ml FLUSH ASDIRECTED PRN PRN Reason: Keep Vein Open Sodium Chloride (Saline Flush) 2.5 ml FLUSH ASDIRECTED PRN PRN Reason: Keep Vein Open Sodium Chloride (Normal Saline) 10 ml IV ASDIRECTED PRN PRN Reason: IV Use Sterile Water (Sterile Water For Irrigation) 1,000 ml IRR ASDIRECTED PRN PRN Reason: delivery Terbutaline Sulfate (Brethine) 0.25 mg SUBCUT ASDIRECTED PRN PRN Reason: Tacysystole - Exam General: Reports: Alert, Oriented HEENT: Reports: Pupils Equal, Pupils Reactive, EOMI, Mucous Membr. Moist/[place] Neck: Reports: Supple Lungs: Reports: Clear to Auscultation, Normal Respiratory Effort Cardiovascular: Reports: Regular Rate, Regular Rhythm GI/Abdominal Exam: Normal Bowel Sounds, Soft, Non-Tender, No Organomegaly, No Distention, No Abnormal Bruit, No Mass, Pelvis Stable (Female) Exam: Normal External Exam, Normal Speculum Exam, Normal Bimanual Exam Rectal (Female) Exam: Normal Exam, Normal Rectal Tone Back Exam: Reports: Normal Inspection, Full Range of Motion Extremities: Normal Inspection, Normal Range of Motion, Non-Tender, No Pedal Edema, Normal Capillary Refill Skin: Reports: Warm, Dry, Intact Wound/Incisions: Reports: Healing Well Neurological: Reports: No New Focal Deficit Psy/Mental Status: Reports: Alert, Normal Affect, Normal Mood
[2018-12-15] MEDS: Docusate Sodium 100 MG Cap PO SCH ×2 (09:10→09:11)
[2018-12-15] MEDS: Ibuprofen 800 MG Tab PO PRN (09:30)
== END 2018-12-15 13:43 | disposition home or self-care (01) | DRG 540 ==
LOC: MW.OBCHECK 09:45 → MW.OB 09:47 → MW.OBCHECK 11:10 → MW.OB 11:11 → OBSVTOIN 12-13 08:23 → MW.OB 12-13 15:00
PROVIDERS: ADMIT Obstetrics & Gynecology; ATTEND Obstetrics & Gynecology
PROC: 10D00Z1 Extraction of Products of Conception, Low, Open Approach (ICD-10-PCS; principal; 2018-12-13)
PROC: 3E0R3BZ Introduction of Anesthetic Agent into Spinal Canal, Percutaneous Approach (ICD-10-PCS; 2018-12-13)
DX: O42.02 Full-term premature rupture of membranes, onset of labor within 24 hours of rupture (principal); O62.1 Secondary uterine inertia; O48.0 Post-term pregnancy; Z3A.41 41 weeks gestation of pregnancy; Z37.0 Single live birth
CPT/HCPCS: 01967; 01968; 36415; 59025; 82803; 84112; 85014; 85018; 85027; 86850; 86900; 86901; A9270-GY; J0595; J0690; J1885; J2270; J2405; J2590; J2795; J3010; J7120

== ENCOUNTER 2019-11-26 14:32 | Emergency (ER) | payer BC, OTHER ==
[2019-11-26] MEDS ORDERED: Sodium Chloride 0.9% 1,000 ML IV ONE (14:37)
[2019-11-26] MEDS ORDERED: Lactated Ringers 1,000 ML IV ONE (14:55)
--- NOTE | 2019-11-26 15:18 | EDM.PDOC ---
ED HPI GENERAL MEDICAL PROBLEM - General Chief Complaint: General Stated Complaint: CHEST PAIN, PASSED OUT Time Seen by Provider: 11/26/19 14:33 - History of Present Illness INITIAL COMMENTS - FREE TEXT/NARRATIVE: HISTORY AND PHYSICAL: History of present illness: 19-year-old female 2 para 1 unsure how many weeks she is approximately 6 to 12 weeks . 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 She has been losing weight since she got but has not had an OB appointment. She also had some episodes of morning sickness but has not been significantly vomiting. Denies any urinary symptoms. No chest pain but did have palpitations today. No vaginal bleeding or cramping. No vaginal discharge. No other associated signs or symptoms. No modifying, aggravating or alleviating factors. Review of systems: A 10-point review of systems, other than pertinent positives and negatives as stated per HPI, is otherwise negative. Past medical history: As per history of present illness and as reviewed below otherwise noncontributory. Surgical history: As per history of present illness and as reviewed below otherwise noncontributory. Social history: No reported history of drug or alcohol abuse. Family history: As per history of present illness and as reviewed below otherwise noncontributory. Physical exam: VITAL SIGNS: Reviewed. GENERAL: Concerned but does not appear to be in physiologic distress HEAD: No signs of head trauma. EYES: Pupils are equal. Extraocular motions intact. EARS: Hearing grossly intact. MOUTH: Oropharynx is normal. NECK: No adenopathy, no JVD. CHEST: Chest with clear breath sounds bilaterally. No wheezes, rales, or rhonchi. CARDIAC: Regular rate and rhythm. Normal S1 and S2, without murmurs, gallops, or rubs. VASCULAR: Peripheral pulses normal and equal in all extremities. ABDOMEN: Soft, without detectable tenderness. No sign of distention. No rebound or guarding, and no masses palpated. MUSCULOSKELETAL: Good range of motion of all major joints. Extremities without clubbing, cyanosis or edema. NEUROLOGIC EXAM: Alert and oriented x 3. No focal sensory or motor deficits. Speech normal. Follows commands. PSYCHIATRIC: Mood normal. SKIN: No rash or lesions. Initial Differential Diagnosis & Plan: High risk features for syncope have been reviewed as below. The patient may have hyperthyroidism of given her dehydration, intermittent tachycardia and palpitations, and her weight loss during . She does not have some of the other cardinal signs like persistent vomiting. Ultrasound exam show she is mildly dehydrated based on her IVC evaluation. No free fluid in the abdomen to indicate ectopic or heterotopic rupture. Intrauterine identified on pelvic ultrasound. I will obtain a UA, labs, and EKG for evaluation. I will give some IV fluid and reevaluate. SYNCOPE RISK FACTORS REVIEWED: Palpitations before syncope present SOB before syncope not present Syncope during exertion or while supine not present Family history of sudden cardiac not present Cardiac disease CHF, systolic (EF <35%) not present CHF, diastolic not present Previous AMI not present ECG abnormality ECG suggestion of Nga-Parkinson White not present HR < 60/min not present QRS duration = 120 ms not present QT prolongation (440 men, 460 women) not present Brugada syndrome (Right bundle branch block with ST elevation in leads V1, V2, and V3) not present Arrhythmogenic right ventricular cardiomyopathy (inverted T waves in right precordial leads) not present Definitive disposition and diagnosis as appropriate pending reevaluation and review of above. - Related Data Allergies Allergy/AdvReac Type Severity Reaction Status Date / Time No Known Allergies Allergy Verified 11/26/19 14:47 Home Meds: Home Meds . 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 History: Reports: Fracture Neurological History: Reports: Concussion Psychiatric History: Reports: Anxiety, Depression Endocrine/Metabolic History: Reports: None Hematologic History: Reports: None Immunologic History: Reports: None Oncologic (Cancer) History: Reports: None Dermatologic History: Reports: None - Infectious Disease History Infectious Disease History: Reports: Chicken Pox - Past Surgical History HEENT Surgical History: Reports: None Respiratory Surgical History: Reports: None GI Surgical History: Reports: None Female Surgical History: Reports: Section 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 Surgical History: Reports: None Social & Family History - Family History Family Medical History: Noncontributory HEENT: Reports: None Cardiac: Reports: None Respiratory: Reports: None GI: Reports: None : Reports: None OBGYN: Reports: 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: Reports: Arthritis, Gout Neurological: Reports: None Psychiatric: Reports: None Endocrine/Metabolic: Reports: Hypoparathyroidism Hematologic: Reports: None Immunologic: Reports: None Dermatologic: Reports: None Oncologic: Reports: None - Tobacco Use Smoking Status *Q: Current Every Day Smoker Years of Tobacco use: 2 Packs/Tins Daily: 0 - Caffeine Use Caffeine Use: Reports: Coffee, Soda - Recreational Drug Use Recreational Drug Use: Yes Recreational Drug Type: Reports: Marijuana/Hashish ED ROS GENERAL - Review of Systems Review Of Systems: See Below (noted) ED EXAM, GENERAL - Physical Exam Exam: See Below (noted) ED GENERAL MEDICAL PROCEDURES - Additional/Other Procedure(s) Other (Free Text) Procedure(s): Procedure Note: Point of Care Bedside Echocardiogram (limited echo) Self-performed and read Location: Chest Indication: Trauma Probe: phased array - Cardiac contour identified - No obvious wall motion abnormalities - No obvious cardiomegaly - No pericardial fluid seen. No Tamponade Impression: 1. No tamponade or effusion Signed by: Slim Munson MD LIMITED ABDOMINAL ULTRASOUND: Self-performed and read; Indication: Trauma and / or Hypotension 1. No Free fluid seen in the hepatorenal space (Morison's Pouch) 2. Trace Free Fluid seen in the suprapubic region (Pelvis). Uterus identified with live IUP 3. No Free Fluid seen in the splenorenal space (LUQ) FINDINGS: No evidence of intraperitoneal free fluid IMPRESSION: Negative FAST exam. Signed by Slim Munson MD PROCEDURE NOTE: Limited OB / Pelvic Ultrasound (transabdominal) Indication: Confirm a live IUP All images obtained and evaluated by me. Images archived and saved. Findings: 1. Uterus Identified 2. No significant Free Fluid Noted 3. Intrauterine identified 4. heart tones measured with M-mode 171 Interpretation: Live IUP. Petty-rump length equals 10 weeks 4 days. Heart rate 171 Signed by Slim Munson M.D. EKG INTERPRETATION EKG Interpretation Comments: 12 lead EKG interpretation Obtained: November 26, 2019 at 1445 Rhythm: Sinus Rate: 69 [place]: Normal Intervals: Normal ST/T Segments: No acute ischemic changes Interpretation: Sinus Rhythm Course - Vital Signs Last Recorded V/S: Last Vital Signs Temp 97.1 F 11/26/19 14:44 Pulse 83 11/26/19 14:44 Resp 17 11/26/19 14:44 BP 123/68 11/26/19 14:44 Pulse Ox 98 11/26/19 14:44 - Orders/Labs/Meds Orders: Active Orders 24 hr Category Date Time Status EKG 12 Lead [EKG Documentation Completion] [RC] STAT Care 11/26/19 14:54 Active EKG Documentation Completion [RC] STAT Care 11/26/19 14:40 Active Labs: Laboratory Tests 11/26/19 11/26/19 11/26/19 Range/Units 15:04 15:04 15:05 WBC 9.25 (4.0-11.0) K/uL RBC 4.21 L (4.30-5.90) M/uL Hgb 13.4 (12.0-16.0) g/dL Hct 39.1 (36.0-46.0) % MCV 92.9 (80.0-98.0) fL MCH 31.8 (27.0-32.0) pg MCHC 34.3 (31.0-37.0) g/dL RDW Std Deviation 41.8 (28.0-62.0) fl RDW Coeff of Addison 12 (11.0-15.0) % Plt Count 168 (150-400) K/uL MPV 10.50 (7.40-12.00) fL Neut % (Auto) 81.9 H (48.0-80.0) % Lymph % (Auto) 12.0 L (16.0-40.0) % Cassia % (Auto) 5.8 (0.0-15.0) % Eos % (Auto) 0.2 (0.0-7.0) % Baso % (Auto) 0.1 (0.0-1.5) % Neut # (Auto) 7.6 H (1.4-5.7) K/uL Lymph # (Auto) 1.1 (0.6-2.4) K/uL Cass[place] # (Auto) 0.5 (0.0-0.8) K/uL Eos # (Auto) 0.0 (0.0-0.7) K/uL Baso # (Auto) 0.0 (0.0-0.1) K/uL Nucleated RBC % 0.0 /100WBC Nucleated RBCs # 0 K/uL Sodium 137 (136-145) mmol/L Potassium 3.9 (3.5-5.1) mmol/L Chloride 102 (98-107) mmol/L Carbon Dioxide 25.4 (21.0-32.0) mmol/L BUN 10 (7.0-18.0) mg/dL Creatinine 0.7 (0.6-1.0) mg/dL Est Cr Clr Drug Dosing 136.55 mL/min Estimated GFR (MDRD) > 60.0 ml/min Glucose 98 (74-106) mg/dL Calcium 8.2 L (8.5-10.1) mg/dL Total Bilirubin 0.4 (0.2-1.0) mg/dL AST 18 (15-37) IU/L ALT 18 (14-63) IU/L Alkaline Phosphatase 42 L (46-116) U/L Troponin I < 0.050 (0.000-0.056) ng/mL Total Protein 7.0 (6.4-8.2) g/dL Albumin 3.7 (3.4-5.0) g/dL Globulin 3.3 (2.6-4.0) g/dL Albumin/Globulin Ratio 1.1 (0.9-1.6) Free T4 1.51 H (0.76-1.46) ng/dL TSH 3rd Generation 0.42 (0.36-3.74) uIU/mL HCG, Quant 93077.0 mIU/mL Urine Color YELLOW Urine Appearance SLT CLOUDY Urine pH 6.0 (5.0-8.0) Ur Specific [place] >= 1.030 (1.001-1.035) Urine Protein NEGATIVE (NEGATIVE) mg/dL Urine Glucose (UA) NEGATIVE (NEGATIVE) mg/dL Urine Ketones TRACE H (NEGATIVE) mg/dL Urine Occult Blood NEGATIVE (NEGATIVE) Urine Nitrite NEGATIVE (NEGATIVE) Urine Bilirubin NEGATIVE (NEGATIVE) Urine Urobilinogen 0.2 (<2.0) EU/dL Ur Leukocyte Esterase NEGATIVE (NEGATIVE) Meds: Medications Discontinued Medications Generic Name Dose Route Start Last Admin Trade Name Freq PRN Reason Stop Dose Admin Sodium Chloride 1,000 mls @ 999 mls/hr 11/26/19 14:37 11/26/19 14:54 Normal Saline IV 11/26/19 15:37 Not Given STAT ONE Lactated Ringer's 1,000 mls @ 1,000 mls/hr 11/26/19 14:55 11/26/19 15:10 Ringers, Lactated IV 11/26/19 15:54 1,000 mls/hr .BOLUS ONE Administration Departure - Departure Time of Disposition: 16:28 Disposition: Home, Self-Care 01 Clinical Impression: Syncope, First trimester , Dehydration - Discharge Information *PRESCRIPTION DRUG MONITORING PROGRAM REVIEWED*: Not Applicable *COPY OF PRESCRIPTION DRUG MONITORING REPORT IN PATIENT AGNES: Not Applicable Instructions: Syncope, [id number], First Trimester of , [id number] , Rehydration, Adult Referrals: PCP,None [Primary Care Provider] - Forms: ED Department Discharge Additional Instructions: The following information is given to patients seen in the emergency department who are being discharged to home. This information is to outline your options for follow-up care. We provide all patients seen in our emergency department with a follow-up referral. The need for follow-up, as well as the timing and circumstances, are variable depending upon the specifics of your emergency department visit. If you don't have a primary care physician on staff, we will provide you with a referral. We always advise you to contact your personal physician following an emergency department visit to inform them of the circumstance of the visit and for follow-up with them and/or the need for any referrals to a consulting specialist. The emergency department will also refer you to a specialist when appropriate. This referral assures that you have the opportunity for follow-up care with a specialist. All of these measure are taken in an effort to provide you with optimal care, which includes your follow-up. Thank you for coming to the [facility] urgency department for your care today. It was Dr. Munson's pleasure to take care of you. Your bedside ultrasound today showed that you have a live intrauterine with a normal heartbeat. Congratulations on your 10-week 4-day-old baby. Please follow-up with your AGRICULTURAL EDUCATION PROFESSOR doctor as you will need more testing and care. You passed out today likely secondary to your , working hard, and being dehydrated. Please return to emergency department for more symptoms or any other concerns. Under all circumstances we always encourage you to contact your private physician who remains a resource for coordinating your care. When calling for follow-up care, please make the office aware that this follow-up is from your recent emergency room visit. If for any reason you are refused follow-up, please contact the [facility] Emergency Department at and asked to speak to the emergency department charge nurse. Sepsis Event Note - Evaluation Sepsis Screening Result: No Definite Risk - Focused Exam Vital Signs: Vital Signs Temp Pulse Resp BP Pulse Ox 11/26/19 14:44 97.1 F 83 17 123/68 98 Date Exam was Performed: 11/26/19 Time Exam was Performed: 16:28 - My Orders Last 24 Hours: My Active Orders 11/26/19 14:54 EKG 12 Lead [EKG Documentation Completion] [RC] STAT - Assessment/Plan Last 24 Hours: My Active Orders 11/26/19 14:54 EKG 12 Lead [EKG Documentation Completion] [RC] STAT
[2019-11-26 16:06] LABS: BLOOD UREA NITROGEN,BUN 10 mg/dL (7.0-18.0); CARBON DIOXIDE,CO2 25.4 mmol/L (21.0-32.0); CHLORIDE,CL 102 mmol/L (98-107); GLUCOSE RANDOM 98 mg/dL (74-106); POTASSIUM,K 3.9 mmol/L (3.5-5.1); SODIUM,NA 137 mmol/L (136-145)
== END 2019-11-26 16:58 | disposition home or self-care (01) ==
LOC: MW.ED 14:32 → MW.OB 14:56 → MW.ED 16:58
DX: O99.281 Endocrine, nutritional and metabolic diseases complicating pregnancy, first trimester (principal); E86.0 Dehydration; F17.200 Nicotine dependence, unspecified, uncomplicated
CPT/HCPCS: 80053; 81003; 84439; 84443; 84484; 84702; 85025; 93005; 96360; 99284; J7120

== ENCOUNTER 2020-06-16 03:20 | Inpatient (IN) | payer BC ==
[2020-06-16] MEDS: Lactated Ringers 1,000 ML IV SCH ×3 (04:15→05:47)
[2020-06-16] MEDS ORDERED: Sodium Chloride 0.9% 10 ML Syringe FLUSH PRN (04:55)
[2020-06-16] MEDS ORDERED: ceFAZolin 2 GM in Premix Bag 1 BAG IV ONE (04:55)
[2020-06-16] MEDS ORDERED: Citric Acid/Sodium Citrate Solution 30 ML Cup PO ONE (04:55)
[2020-06-16] MEDS ORDERED: Sodium Chloride 0.9% 2.5 ML Syringe FLUSH PRN (04:55)
[2020-06-16] MEDS ORDERED: Sodium Chloride 0.9% 10 ML SDV IV PRN (04:55)
[2020-06-16] MEDS ORDERED: Lactated Ringers 1,000 ML IV SCH ×2 (05:00→07:45)
[2020-06-16] MEDS ORDERED: Oxytocin/0.9 % Sodium Chloride 30 UNIT/500 ML BAG IV SCH (05:00)
--- NOTE | 2020-06-16 05:01 | PCM.LDHP ---
L&D History of Present Illness - General Date of Service: 06/16/20 Admit Problem/Dx: Patient Status Order with Admit Dx/Problem 06/16/20 03:29 Patient Status [ADT] Routine Admission Diagnosis/Problem Admission Diagnosis/Problem Source of Information: Patient History Limitations: Reports: No Limitations - History of Present Illness Introduction:: 19 year old at 39w0d (TORRI 06/23/2020 by 10w0d ) presented to labor and delivery early this morning with contractions q2-3 minutes since midnight. complicated by previous x1 and thrombocytopenia. Denies leaking fluid or vaginal bleeding. Reports good movement. 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: 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 History: Reports: Fracture Neurological History: Reports: Concussion Psychiatric History: Reports: Anxiety, Depression Endocrine/Metabolic History: Reports: None Hematologic History: Reports: Other (See Below) Other Hematologic History: thrombocytopenia Immunologic History: Reports: None Oncologic (Cancer) History: Reports: None Dermatologic History: Reports: None - Infectious Disease History Infectious Disease History: Reports: Chicken Pox - Past Surgical History HEENT Surgical History: Reports: None Respiratory Surgical History: Reports: None GI Surgical History: Reports: None Female Surgical History: Reports: Section 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 Surgical History: Reports: None Social & Family History - Family History Family Medical History: No Pertinent Family History HEENT: Reports: None Cardiac: Reports: None Respiratory: Reports: None GI: Reports: None : Reports: None OBGYN: Reports: 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: Reports: Arthritis, Gout Neurological: Reports: None Psychiatric: Reports: None Endocrine/Metabolic: Reports: Hypoparathyroidism Hematologic: Reports: None Immunologic: Reports: None Dermatologic: Reports: None Oncologic: Reports: None - Tobacco Use Tobacco Use Status *Q: Former Tobacco User Used Tobacco, but Quit: Yes Month/Year Tobacco Last Used: 11/10 Second Hand Smoke Exposure: No - Caffeine Use Caffeine Use: Reports: Coffee - Recreational Drug Use Recreational Drug Use: No H&P Review of Systems - Review of Systems: Review Of Systems: See Below General: Reports: No Symptoms Pulmonary: Reports: No Symptoms Cardiovascular: Reports: No Symptoms Gastrointestinal: Reports: Abdominal Pain Genitourinary: Reports: No Symptoms 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: Reports: No Symptoms Skin: Reports: No Symptoms Psychiatric: Reports: No Symptoms Neurological: Reports: No Symptoms L&D Exam - Exam Exam: See Below - Vital Signs Weight: 170 lb - OB Specific Contraction Frequency (min): q2-4 minutes Contraction Intensity: Moderate Movement: Active Heart Tones: Present Heart Tones per Min: 120 Heart Rate (FHR) Variability: Moderate (6-25 bmp) Presentation: Vertex Estimated Weight: 3100 grams per Fredi's - Lund Score Lund Score Cervix Position: Posterior Lund Score Effacement: 31-50% Lund Score Dilation: 1-2 cm Lund Score Infant's Station: -3 - Exam General: Alert Lungs: Normal Respiratory Effort Cardiovascular: Regular Rate GI/Abdominal Exam: Soft, Non-Tender Genitourinary: Normal external exam Back Exam: Full Range of Motion Extremities: Normal Inspection, No Pedal Edema Skin: Warm, Dry, Intact Psychiatric: Normal Mood - Patient Data Lab Results Last 24 hrs: Laboratory Results - last 24 hr 06/16/20 06/16/20 Range/Units 03:20 04:13 WBC 8.96 (4.0-11.0) K/uL RBC 3.63 L (4.30-5.90) M/uL Hgb 11.9 L (12.0-16.0) g/dL Hct 35.2 L (36.0-46.0) % MCV 97.0 (80.0-98.0) fL MCH 32.8 H (27.0-32.0) pg MCHC 33.8 (31.0-37.0) g/dL RDW Std Deviation 47.3 (28.0-62.0) fl RDW Coeff of Addison 13 (11.0-15.0) % Plt Count 147 L (150-400) K/uL MPV 10.80 (7.40-12.00) fL Nucleated RBC % 0.0 /100WBC Nucleated RBCs # 0 K/uL Urine Color YELLOW Urine Appearance CLEAR Urine pH 7.0 (5.0-8.0) Ur Specific [place] 1.015 (1.001-1.035) Urine Protein NEGATIVE (NEGATIVE) mg/dL Urine Glucose (UA) NEGATIVE (NEGATIVE) mg/dL Urine Ketones NEGATIVE (NEGATIVE) mg/dL Urine Occult Blood NEGATIVE (NEGATIVE) Urine Nitrite NEGATIVE (NEGATIVE) Urine Bilirubin NEGATIVE (NEGATIVE) Urine Urobilinogen 0.2 (<2.0) EU/dL Ur Leukocyte Esterase TRACE H (NEGATIVE) Result Diagrams: 06/16/20 04:13 Problem List Initiated/Reviewed/Updated: Yes Orders Last 24hrs: Active Orders 24 hr Category Date Time Status Patient Status [ADT] Routine ADT 06/16/20 03:29 Active Non Stress Test [RC] PER UNIT ROUTINE Care 06/16/20 03:29 Active Up ad Hetal [RC] ASDIRECTED Care 06/16/20 03:29 Active Vaginal Exam [RC] Click to Edit Care 06/16/20 03:29 Active Vital Signs [RC] PER UNIT ROUTINE Care 06/16/20 03:29 Active CORONAVIRUS COVID-19 VIKI [MOLEC] Routine Lab 06/16/20 04:19 Received TYPE AND SCREEN [BBK] Routine Lab 06/16/20 04:13 Received Lactated Ringers [Ringers, Lactated] 1,000 ml Med 06/16/20 04:30 Active IV ASDIRECTED Resuscitation Status Routine Resus Stat 06/16/20 03:29 Ordered Medication Orders Lactated Ringer's (Ringers, Lactated) 1,000 mls @ 999 mls/hr IV ASDIRECTED JHONATHAN Assessment/Plan Comment:: 19 year old at 39w0d (TORRI 06/23/2020 by 10w0d [place]) in labor with history of section x1 * Admit to L&D for repeat LTCS, patient declines * Labs O+, rubella immune, GBS negative * COVID-19 test pending * History of gestational thrombocytopenia, platelets today 147,000 * Risks of procedure reviewed including infection, bleeding with rare need for blood transfusion/hysterectomy, injury to surrounding structures with need for additional procedures and remote risk of . Questions elicited and answered. 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
[2020-06-16] MEDS ORDERED: Morphine PF 10 MG/10 ML SDV ONE (05:06)
[2020-06-16] MEDS ORDERED: Oxytocin 10 Units/1 ML SDV ONE (05:09)
[2020-06-16] MEDS ORDERED: Ondansetron 4 MG/2 ML SDV ONE (05:09)
[2020-06-16] MEDS ORDERED: Phenylephrine 1% 10 MG/ML SDV ONE (05:09)
[2020-06-16] MEDS ORDERED: ceFAZolin 1 GM Vial ONE (05:15)
[2020-06-16] MEDS ORDERED: Sodium Chloride 0.9% 20 ML ONE (05:15)
--- NOTE | 2020-06-16 05:30 | PCM.PREANE ---
Preanesthetic Assessment - Anesthesia/Transfusion/Family Hx Anesthesia History: Prior Anesthesia Without Reaction Type of Anesthesia Reaction: Excessive Nausea/Vomiting Family History of Anesthesia Reaction: No Transfusion History: No Prior Transfusion(s) Intubation History: Unknown - Review of Systems General: No Symptoms Pulmonary: No Symptoms Cardiovascular: No Symptoms Gastrointestinal: Abdominal Pain (labor pain) Neurological: No Symptoms Other: Reports: None - Physical Assessment Height: 5 ft 9 in Weight: 77.111 kg ASA Class: 2E Mental Status: Alert & Oriented x3 Airway Class: Mallampati = 2 Dentition: Reports: Normal Dentition Thyro-Mental Finger Breadths: 3 Mouth Opening Finger Breadths: 3 ROM/Head Extension: Full Lungs: Clear to Auscultation, Normal Respiratory Effort Cardiovascular: Regular Rate, Regular Rhythm - Lab Values: Laboratory Last Values WBC 8.96 K/uL (4.0-11.0) 06/16/20 04:13 RBC 3.63 M/uL (4.30-5.90) L 06/16/20 04:13 Hgb 11.9 g/dL (12.0-16.0) L 06/16/20 04:13 Hct 35.2 % (36.0-46.0) L 06/16/20 04:13 MCV 97.0 fL (80.0-98.0) 06/16/20 04:13 MCH 32.8 pg (27.0-32.0) H 06/16/20 04:13 MCHC 33.8 g/dL (31.0-37.0) 06/16/20 04:13 RDW Std Deviation 47.3 fl (28.0-62.0) 06/16/20 04:13 RDW Coeff of Addison 13 % (11.0-15.0) 06/16/20 04:13 Plt Count 147 K/uL (150-400) L 06/16/20 04:13 MPV 10.80 fL (7.40-12.00) 06/16/20 04:13 Nucleated RBC % 0.0 /100WBC 06/16/20 04:13 Nucleated RBCs # 0 K/uL 06/16/20 04:13 Urine Color YELLOW 06/16/20 03:20 Urine Appearance CLEAR 06/16/20 03:20 Urine pH 7.0 (5.0-8.0) 06/16/20 03:20 Ur Specific [place] 1.015 (1.001-1.035) 06/16/20 03:20 Urine Protein NEGATIVE mg/dL (NEGATIVE) 06/16/20 03:20 Urine Glucose (UA) NEGATIVE mg/dL (NEGATIVE) 06/16/20 03:20 Urine Ketones NEGATIVE mg/dL (NEGATIVE) 06/16/20 03:20 Urine Occult Blood NEGATIVE (NEGATIVE) 06/16/20 03:20 Urine Nitrite NEGATIVE (NEGATIVE) 06/16/20 03:20 Urine Bilirubin NEGATIVE (NEGATIVE) 06/16/20 03:20 Urine Urobilinogen 0.2 EU/dL (<2.0) 06/16/20 03:20 Ur Leukocyte Esterase TRACE (NEGATIVE) H 06/16/20 03:20 SARS-CoV-2 RNA (VIKI) NEGATIVE (NEGATIVE) 06/16/20 04:19 Blood Type O POSITIVE 06/16/20 04:13 Antibody Screen NEGATIVE 06/16/20 04:13 - Allergies Allergies/Adverse Reactions: Allergies Allergy/AdvReac Type Severity Reaction Status Date / Time No Known Allergies Allergy Verified 06/14/20 08:58 - Blood Blood Available: No - Anesthesia Plan Pre-Op Medication Ordered: None - Acknowledgements Anesthesia Type Planned: Spinal (general anesthesia back-up plan) Pt an Appropriate Candidate for the Planned Anesthesia: Yes Alternatives and Risks of Anesthesia Discussed w Pt/Guardian: Yes Pt/Guardian Understands and Agrees with Anesthesia Plan: Yes PreAnesthesia Questionnaire - Past Health History Medical/Surgical History: Denies Medical/Surgical History HEENT History: Reports: None Cardiovascular History: Reports: None Respiratory History: Reports: None Gastrointestinal History: Reports: None Genitourinary History: Reports: None IVORY POLISHER History: Reports: 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 History: Reports: Fracture Neurological History: Reports: Concussion Psychiatric History: Reports: Anxiety, Depression Endocrine/Metabolic History: Reports: None Hematologic History: Reports: Other (See Below) Other Hematologic History: thrombocytopenia Immunologic History: Reports: None Oncologic (Cancer) History: Reports: None Dermatologic History: Reports: None - Infectious Disease History Infectious Disease History: Reports: Chicken Pox - Past Surgical History HEENT Surgical History: Reports: None Respiratory Surgical History: Reports: None GI Surgical History: Reports: None Female Surgical History: Reports: Section 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 Surgical History: Reports: None - SUBSTANCE USE Tobacco Use Status *Q: Former Tobacco User Tobacco Use Within Last Twelve Months: Cigarettes Second Hand Smoke Exposure: No Recreational Drug Use History: No - HOME MEDS Home Medications: Home Meds Pnv No.95/Ferrous Fum/Folic AC [ Vitamin Tablet] 1 tab PO DAILY 06/14/20 [History] - CURRENT (IN HOUSE) MEDS Current Meds: Current Medications Lactated Ringer's (Ringers, Lactated) 1,000 mls @ 999 mls/hr IV ASDIRECTED JHONATHAN Last Admin: 06/16/20 05:11 Dose: 999 mls/hr Documented by: Lactated Ringer's (Ringers, Lactated) 1,000 mls @ 500 mls/hr IV BOLUS JHONATHAN Oxytocin/Sodium Chloride (Oxytocin 30 Unit/500 Ml-Ns) 30 unit in 500 mls @ 250 mls/hr IV TITRATE JHONATHAN Sodium Chloride (Saline Flush) 10 ml FLUSH ASDIRECTED PRN PRN Reason: Keep Vein Open Sodium Chloride (Saline Flush) 2.5 ml FLUSH ASDIRECTED PRN PRN Reason: Keep Vein Open Sodium Chloride (Normal Saline) 10 ml IV ASDIRECTED PRN PRN Reason: IV Use Discontinued Medications Cefazolin Sodium (Ancef) Confirm Administered Dose 2 gm .ROUTE .STK-MED ONE Stop: 06/16/20 05:16 Citric Acid/Sodium Citrate (Bicitra Solution) 30 ml PO ONETIME ONE Stop: 06/16/20 04:56 Cefazolin Sodium/Dextrose 2 gm (/ Premix) 50 mls @ 100 mls/hr IV ONETIME ONE Stop: 06/16/20 05:24 Sodium Chloride (Normal Saline) Confirm Administered Dose 20 mls @ as directed .ROUTE .STK-MED ONE Stop: 06/16/20 05:16 Morphine Sulfate (Duramorph Pf) Confirm Administered Dose 10 mg .ROUTE .STK-MED ONE Stop: 06/16/20 05:07 Ondansetron HCl (Zofran) Confirm Administered Dose 4 mg .ROUTE .STK-MED ONE Stop: 06/16/20 05:10 Oxytocin (Pitocin) Confirm Administered Dose 20 unit .ROUTE .STK-MED ONE Stop: 06/16/20 05:10 Phenylephrine HCl (Yvan-Synephrine) Confirm Administered Dose 10 mg .ROUTE .STK- MED ONE Stop: 06/16/20 05:10
[2020-06-16] MEDS ORDERED: fentaNYL 100 MCG/2 ML SDV IVPUSH PRN (05:54)
[2020-06-16] MEDS ORDERED: Acetaminophen/oxyCODONE 325-5 MG Tab PO PRN ×2 (05:54→07:38)
[2020-06-16] MEDS ORDERED: Naloxone 0.4 MG/ML Syringe IVPUSH PRN (05:54)
[2020-06-16] MEDS ORDERED: diphenhydrAMINE 50 MG/ML SDV IVPUSH PRN ×2 (05:54→07:38)
[2020-06-16] MEDS ORDERED: Ondansetron 4 MG/2 ML SDV IVPUSH PRN ×2 (05:54→07:38)
[2020-06-16] MEDS ORDERED: Nalbuphine 10 MG/1 ML Vial IVPUSH PRN (05:54)
[2020-06-16] MEDS ORDERED: Oxytocin 10 Units/1 ML SDV IM PRN (07:38)
[2020-06-16] MEDS ORDERED: Misoprostol 200 MCG Tab RECTAL PRN (07:38)
[2020-06-16] MEDS ORDERED: Bisacodyl 10 MG Supp RECTAL PRN (07:38)
[2020-06-16] MEDS ORDERED: Methylergonovine 0.2 MG/1 ML Amp IM PRN (07:38)
[2020-06-16] MEDS ORDERED: Lanolin 100% Cream 7 GM Tube TOP PRN (07:38)
[2020-06-16] MEDS ORDERED: Tranexamic Acid 1,000 MG in Sodium Chloride 0.9% 100 ML IV PRN (07:38)
--- NOTE | 2020-06-16 07:48 | PCM.OPNOTE ---
- General Post-Op/Procedure Note Date of Surgery/Procedure: 06/16/20 Operative Procedure(s): Repeat lower transverse section Findings: Normal appearing male in cephalic presentation. Clear amniotic fluid. APGARs 9/9. Weight 3110 grams. Normal appearing uterus, fallopian tubes and ovaries. Pre Op Diagnosis: 1. TIUP at 39w0d. 2. Previous section x1. 3. Gestational thrombocytopenia. 4. Spontaneous labor Post-Op Diagnosis: 1. TIUP at 39w0d. 2. Previous section x1. 3. Gestational thrombocytopenia. 4. Spontaneous labor Anesthesia Technique: Spinal Primary Surgeon: Kristie Rodriguez Fluid Replacement, Intraop: 1,050 Output, Urine Amount: 450 EBL in mLs: 600 Complications: None known Condition: Good Free Text/Narrative:: Intake & Output 06/15/20 06/16/20 06/16/20 22:59 06:59 14:59 Output Total 450 Balance -450 Dictation #[id number]
--- NOTE | 2020-06-16 08:02 | PCM.DEL ---
L & D Note - General Info Date of Service: 06/16/20 Mother's Due Date: 06/23/20 - Delivery Note Labor: Spontaneous Delivery Outcome: Livebirth Infant Delivery Method: Repeat Presentation: Right Occiput Posterior (ROP) Nuchal Cord: None Anesthesia Type: Spinal Amniotic Fluid Description: Clear Episiotomy Type: None Laceration: None Placenta: Intact, Spontaneous Cord: 3 Vessels Estimated Blood Loss: 600 Resuscitation Needed: No [place]: Bulb Syringe, Stimulated, Warmed, [place] Used, Warmer Used Provider: ob Score 1 min: 9 Score 5 min: 9 - General Info Date of Service: 06/16/20 Admission Dx/Problem (Free Text): Patient Status Order with Admit Dx/Problem 06/16/20 03:29 Patient Status [ADT] Routine Admission Diagnosis/Problem Admission Diagnosis/Problem - Patient Data Weight - Most Recent: 170 lb I&O - Last 24 Hours: Intake & Output 06/15/20 06/16/20 06/16/20 22:59 06:59 14:59 Intake Total 1050 Output Total 900 Balance 150 Lab Results Last 24 Hours: Laboratory Results - last 24 hr 06/16/20 06/16/20 06/16/20 Range/Units 03:20 04:13 04:13 WBC 8.96 (4.0-11.0) K/uL RBC 3.63 L (4.30-5.90) M/uL Hgb 11.9 L (12.0-16.0) g/dL Hct 35.2 L (36.0-46.0) % MCV 97.0 (80.0-98.0) fL MCH 32.8 H (27.0-32.0) pg MCHC 33.8 (31.0-37.0) g/dL RDW Std Deviation 47.3 (28.0-62.0) fl RDW Coeff of Addison 13 (11.0-15.0) % Plt Count 147 L (150-400) K/uL MPV 10.80 (7.40-12.00) fL Nucleated RBC % 0.0 /100WBC Nucleated RBCs # 0 K/uL Urine Color YELLOW Urine Appearance CLEAR Urine pH 7.0 (5.0-8.0) Ur Specific [place] 1.015 (1.001-1.035) Urine Protein NEGATIVE (NEGATIVE) mg/dL Urine Glucose (UA) NEGATIVE (NEGATIVE) mg/dL Urine Ketones NEGATIVE (NEGATIVE) mg/dL Urine Occult Blood NEGATIVE (NEGATIVE) Urine Nitrite NEGATIVE (NEGATIVE) Urine Bilirubin NEGATIVE (NEGATIVE) Urine Urobilinogen 0.2 (<2.0) EU/dL Ur Leukocyte Esterase TRACE H (NEGATIVE) SARS-CoV-2 RNA (VIKI) (NEGATIVE) Blood Type O POSITIVE Antibody Screen NEGATIVE 06/16/20 Range/Units 04:19 WBC (4.0-11.0) K/uL RBC (4.30-5.90) M/uL Hgb (12.0-16.0) g/dL Hct (36.0-46.0) % MCV (80.0-98.0) fL MCH (27.0-32.0) pg MCHC (31.0-37.0) g/dL RDW Std Deviation (28.0-62.0) fl RDW Coeff of Addison (11.0-15.0) % Plt Count (150-400) K/uL MPV (7.40-12.00) fL Nucleated RBC % /100WBC Nucleated RBCs # K/uL Urine Color Urine Appearance Urine pH (5.0-8.0) Ur Specific [place] (1.001-1.035) Urine Protein (NEGATIVE) mg/dL Urine Glucose (UA) (NEGATIVE) mg/dL Urine Ketones (NEGATIVE) mg/dL Urine Occult Blood (NEGATIVE) Urine Nitrite (NEGATIVE) Urine Bilirubin (NEGATIVE) Urine Urobilinogen (<2.0) EU/dL Ur Leukocyte Esterase (NEGATIVE) SARS-CoV-2 RNA (VIKI) NEGATIVE (NEGATIVE) Blood Type Antibody Screen Med Orders - Current: Current Medications Bisacodyl (Dulcolax) 10 mg RECTAL ONETIME PRN PRN Reason: Constipation Diphenhydramine HCl (Benadryl) 25 mg IVPUSH Q4H PRN PRN Reason: Itching Stop: 06/17/20 05:54 Diphenhydramine HCl (Benadryl) 25 mg IVPUSH Q6H PRN PRN Reason: Itching or Nausea Docusate Sodium (Colace) 100 mg PO BID JHONATHAN Emollient Ointment (Lansinoh Hpa) 0 gm TOP ASDIRECTED PRN PRN Reason: Sore Nipples Fentanyl (Sublimaze) 50 mcg IVPUSH Q1H PRN PRN Reason: Pain (severe 7-10) Lactated Ringer's (Ringers, Lactated) 1,000 mls @ 999 mls/hr IV ASDIRECTED [facility] Last Admin: 06/16/20 05:47 Dose: 999 mls/hr Documented by: Lactated Ringer's (Ringers, Lactated) 1,000 mls @ 500 mls/hr IV BOLUS [facility] Oxytocin/Sodium Chloride (Oxytocin 30 Unit/500 Ml-Ns) 30 unit in 500 mls @ 250 mls/hr IV TITRATE [facility] Lactated Ringer's (Ringers, Lactated) 1,000 mls @ 125 mls/hr IV ASDIRECTED [facility] Tranexamic Acid 1,000 mg/ (Sodium Chloride) 110 mls @ 660 mls/hr IV ONETIME PRN PRN Reason: Bleeding Ibuprofen (Motrin) 800 mg PO Q8H PRN PRN Reason: mild pain or fever Methylergonovine Maleate (Methergine) 0.2 mg IM ONETIME PRN PRN Reason: Excessive Vaginal Bleeding Misoprostol (Cytotec) 1,000 mcg RECTAL ONETIME PRN PRN Reason: excessive bleeding Nalbuphine HCl (Nubain) 5 mg IVPUSH ASDIRECTED PRN PRN Reason: Itching Naloxone HCl (Narcan) 0.1 mg IVPUSH ONETIME PRN PRN Reason: Respiratory Depression Stop: 06/17/20 05:54 Ondansetron HCl (Zofran) 4 mg IVPUSH Q6H PRN PRN Reason: Nausea Ondansetron HCl (Zofran) 4 mg IVPUSH Q4H PRN PRN Reason: Nausea/Vomiting Oxycodone/Acetaminophen (Percocet 325-5 Mg) 2 tab PO Q6H PRN PRN Reason: Pain (moderate 4-6) Oxycodone/Acetaminophen (Percocet 325-5 Mg) 1 tab PO Q4H PRN PRN Reason: Pain (moderate 4-6) Oxycodone/Acetaminophen (Percocet 325-5 Mg) 2 tab PO Q4H PRN PRN Reason: Pain (moderate 4-6) Oxytocin (Pitocin) 10 unit IM ASDIRECTED PRN PRN Reason: Excessive Vaginal Bleeding Sodium Chloride (Saline Flush) 10 ml FLUSH ASDIRECTED PRN PRN Reason: Keep Vein Open Sodium Chloride (Saline Flush) 2.5 ml FLUSH ASDIRECTED PRN PRN Reason: Keep Vein Open Sodium Chloride (Normal Saline) 10 ml IV ASDIRECTED PRN PRN Reason: IV Use Discontinued Medications Cefazolin Sodium (Ancef) Confirm Administered Dose 2 gm .ROUTE .STK-MED ONE Stop: 06/16/20 05:16 Citric Acid/Sodium Citrate (Bicitra Solution) 30 ml PO ONETIME ONE Stop: 06/16/20 04:56 Cefazolin Sodium/Dextrose 2 gm (/ Premix) 50 mls @ 100 mls/hr IV ONETIME ONE Stop: 06/16/20 05:24 Sodium Chloride (Normal Saline) Confirm Administered Dose 20 mls @ as directed .ROUTE .STK-MED ONE Stop: 06/16/20 05:16 Morphine Sulfate (Duramorph Pf) Confirm Administered Dose 10 mg .ROUTE .STK-MED ONE Stop: 06/16/20 05:07 Ondansetron HCl (Zofran) Confirm Administered Dose 4 mg .ROUTE .STK-MED ONE Stop: 06/16/20 05:10 Oxytocin (Pitocin) Confirm Administered Dose 20 unit .ROUTE .STK-MED ONE Stop: 06/16/20 05:10 Phenylephrine HCl (Yvan-Synephrine) Confirm Administered Dose 10 mg .ROUTE .STK- MED ONE Stop: 06/16/20 05:10 - Problem List Review Problem List Initiated/Reviewed/Updated: Yes - My Orders Last 24 Hours: My Active Orders 06/16/20 03:29 Non Stress Test [RC] PER UNIT ROUTINE Up ad Hetal [RC] ASDIRECTED Vaginal Exam [RC] Click to Edit Vital Signs [RC] PER UNIT ROUTINE Resuscitation Status Routine 06/16/20 04:13 RPR (SYPHILIS SERO) W/ RFLX [REF] Routine 06/16/20 04:30 Lactated Ringers [Ringers, Lactated] 1,000 ml IV ASDIRECTED 06/16/20 04:55 Sodium Chloride 0.9% [Normal Saline] 10 ml IV ASDIRECTED PRN Sodium Chloride 0.9% [Saline Flush] 10 ml FLUSH ASDIRECTED PRN Sodium Chloride 0.9% [Saline Flush] 2.5 ml FLUSH ASDIRECTED PRN 06/16/20 04:56 Patient Status [ADT] Routine Procedure Site Prep Instruct [RC] ASDIRECTED Up ad Hetal [RC] ASDIRECTED Verify Patient Consent Obtain [RC] ASDIRECTED Vital Signs [RC] PER UNIT ROUTINE Peripheral IV Insertion Adult [OM.PC] Routine Schedule Procedure [COMM] Per Unit Routine 06/16/20 04:57 Notify Provider Vital Signs [RC] PRN 06/16/20 05:00 Lactated Ringers [Ringers, Lactated] 1,000 ml IV BOLUS Oxytocin/0.9 % Sodium Chloride [Oxytocin 30 Unit/500 ML-NS] 30 unit in 500 ml IV TITRATE 06/16/20 07:38 Acetaminophen/oxyCODONE [Percocet 325-5 MG] 1 tab PO Q4H PRN Acetaminophen/oxyCODONE [Percocet 325-5 MG] 2 tab PO Q4H PRN Ibuprofen [Motrin] 800 mg PO Q8H PRN Lanolin [Lansinoh HPA] See Dose Instructions TOP ASDIRECTED PRN Methylergonovine [Methergine] 0.2 mg IM ONETIME PRN Ondansetron [Zofran] 4 mg IVPUSH Q4H PRN Oxytocin [Pitocin] 10 unit IM ASDIRECTED PRN Tranexamic Acid [Cyklokapron] 1,000 mg Sodium Chloride 0.9% [Normal Saline] 100 ml IV ONETIME bisacodyL [Dulcolax] 10 mg RECTAL ONETIME PRN diphenhydrAMINE [Benadryl] 25 mg IVPUSH Q6H PRN miSOPROStoL [Cytotec] 1,000 mcg RECTAL ONETIME PRN 06/16/20 07:39 Patient Status [ADT] Routine Ambulate [RC] PER UNIT ROUTINE Antiembolic Devices [RC] PER UNIT ROUTINE Communication Order [RC] PER UNIT ROUTINE Communication Order [RC] PER UNIT ROUTINE Communication Order [RC] Per Unit Routine May Shower [RC] ASDIRECTED RT Incentive Spirometry [RC] Q2HWA Vital Signs [RC] PER UNIT ROUTINE Assess Lochia [WOMSER] Per Unit Routine Assess Uterine Involution [WOMSER] Per Unit Routine Breast Pump [WOMSER] Per Unit Routine Peripheral IV Discontinue [OM.PC] Routine Sequential Compression Device [OM.PC] Per Unit Routine 06/16/20 07:45 Lactated Ringers @ 125 MLS/HR(1000ml) Lactated Ringers [Ringers, Lactated] 1,000 ml IV ASDIRECTED 06/16/20 08:00 Notify Provider Intake and Out [RC] ASDIRECTED Notify Provider Vital Signs [RC] ASDIRECTED 06/16/20 09:00 Docusate Sodium [Colace] 100 mg PO BID 06/16/20 Lunch Regular Diet [DIET] 06/17/20 05:11 HEMOGLOBIN/HEMATOCRIT,HH [HEME] Timed - Assessment Assessment:: 19 year old G2 now P2 s/p repeat LTCS - Plan Plan:: Routine cares * Rh positive, rubella immune, GBS negative * Encourage ambulation and fluid intake when able * Regular diet with tolerating PO * Pain medication ordered PRN * Monitor vaginal bleeding, EBL 600cc * , nursing assistance PRN * Desires Depo provera for contraception. Rx sent to patient's pharmacy and she is to bring the medication to her postoperative appointment for administration Gestational thrombocytopenia * Platelets on admission were 147,000 * Repeat CBC ordered * No Toradol History of depression * Denies symptoms today * Monitor closely while inpatient Dispo: stable. Anticipate routine course.
--- NOTE | 2020-06-16 09:02 | OR ---
SURGEON: KRISTIE RODRIGUEZ MD DATE OF PROCEDURE: 06/16/2020 PREOPERATIVE DIAGNOSES: 1. Term intrauterine at 39 weeks and 0 days. 2. Previous section x1. 3. Gestational thrombocytopenia. 4. Spontaneous labor. POSTOPERATIVE DIAGNOSES: 1. Term intrauterine at 39 weeks and 0 days. 2. Previous section x1. 3. Gestational thrombocytopenia. 4. Spontaneous labor. PROCEDURE: Repeat lower transverse section. PRIMARY SURGEON: Kristie Rodriguez MD ANESTHESIA: Spinal. COMPLICATIONS: None known. ESTIMATED BLOOD LOSS: 600 mL. IV FLUIDS: 1050 mL of crystalloid. URINE OUTPUT: 450 mL of clear urine at the end of the procedure. INDICATIONS: A 19-year-old, 2, para 1, at 39 weeks and 0 days, with history of primary lower transverse section due to failure to progress in labor, presented to Labor and Delivery on the [employer] [place] 06/16/2020 in active labor. Declined trial of labor after section. FINDINGS: A normal-appearing male , cephalic presentation, clear amniotic fluid. score of 9 and 9, weight 3110 g. Normal-appearing uterus, tubes, and ovaries. PROCEDURE IN DETAIL: The patient was taken to the operating room where epidural anesthesia was found to be adequate. She was prepped and draped in normal sterile fashion in dorsal supine position with a leftward tilt. Skin incision was made with scalpel and carried out to the underlying layer of fascia, which was incised in the midline. The fascial incision was then extended with Hooks scissors bilaterally. The superior aspect of the fascial incision was then grasped with Elli clamps, elevated, and dissected off the rectus muscles with Mayos. The inferior aspect of the fascial incision was then grasped with Kochers and in a likewise manner was elevated and dissected off with Mayos. The peritoneum was then entered digitally and extended with good visualization of the bladder. The [place] O-Ring was then inserted into the abdomen to assist with visualization. The vesicouterine peritoneum was identified and grasped with pickups and entered sharply with Metzenbaum scissors. The bladder flap was then created digitally. Uterine incision was then created in a transverse fashion in the lower uterine segment with a scalpel and extended digitally. The amniotic sac incidentally ruptured at this time, clear fluid noted. 's head delivered atraumatically. Nose and mouth were suctioned with bulb. The cord was clamped and cut, handed off to awaiting nursing staff after 1 minute. Arterial, venous, and cord blood gases were obtained. The placenta was then expressed and uterus exteriorized in the abdomen and cleared of all clots and debris. The uterine incision was then repaired in a running locked fashion with 0 Monocryl. A second suture of the same was then used to imbricate the incision. A small area of oozing noted in the inferior midline edge of the hysterotomy site. A 3-0 chromic suture was used to place a [id number] suture. Hemostasis was noted. A small amount of oozing was also noted at the right lateral edge of the incision. 3-0 chromic was used to place a [id number] suture, however, a small amount of oozing still remained. Pressure was applied to the area and Felicia powder was placed over the uterine incision. Hemostasis was then noted. The uterus was then returned to the abdomen. Gutters cleared of all clots and debris. The [place] O-Ring was removed. The rectus muscles were reapproximated in a running fashion with 3-0 Vicryl. Hemostasis was achieved with cautery over the rectus muscles. The fascia was then closed in a running fashion with 0 Vicryl. The incision was irrigated and hemostasis assured. The skin was closed with 4-0 Vicryl on a Heraclio needle and Steri-Strips were then placed along the incision. Sponge, lap, and needle counts were correct x2. Prophylactic antibiotics were given prior to the procedure. The patient tolerated the procedure well and was taken back room in recovery in stable condition. YOEL GLASS /[id number] GUILLERMINA
[2020-06-16] MEDS: Docusate Sodium 100 MG Cap PO SCH (09:23)
[2020-06-16] MEDS ORDERED: Morphine 10 MG/ML Syringe IVPUSH PRN (13:50)
[2020-06-16] MEDS ORDERED: Morphine 2 MG/ML SYRINGE IVPUSH PRN (14:48)
[2020-06-16] MEDS: Acetaminophen/oxyCODONE 325-5 MG Tab PO PRN ×2 (18:41→23:35)
[2020-06-17] MEDS: Ibuprofen 800 MG Tab PO PRN ×2 (05:37→14:12)
--- NOTE | 2020-06-17 06:57 | PCM48HPAN ---
Post Anesthesia Note - EVALUATION WITHIN 48HRS OF ANESTHETIC Vital Signs in Normal Range: Yes Patient Participated in Evaluation: Yes Respiratory Function Stable: Yes Airway Patent: Yes Cardiovascular Function Stable: Yes Hydration Status Stable: Yes Pain Control Satisfactory: Yes Nausea and Vomiting Control Satisfactory: Yes Mental Status Recovered: Yes Vital Signs: Last Vital Signs Temp 36.2 C 06/17/20 04:00 Pulse 64 06/17/20 05:00 Resp 16 06/17/20 05:00 BP 114/58 L 06/17/20 04:00 Pulse Ox 100 06/17/20 05:00
[2020-06-17] MEDS: Docusate Sodium 100 MG Cap PO SCH ×3 (08:12→21:04)
[2020-06-17] MEDS: Acetaminophen/oxyCODONE 325-5 MG Tab PO PRN ×3 (09:01→21:04)
--- NOTE | 2020-06-17 13:51 | PCM.PNPP ---
- General Info Date of Service: 06/17/20 Functional Status: Reports: Pain Controlled, Tolerating Diet, Ambulating, Urinating - Review of Systems General: Reports: No Symptoms HEENT: Reports: No Symptoms Pulmonary: Reports: No Symptoms Cardiovascular: Reports: No Symptoms Gastrointestinal: Reports: No Symptoms Genitourinary: Reports: No Symptoms 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: Reports: No Symptoms Skin: Reports: No Symptoms Neurological: Reports: No Symptoms Psychiatric: Reports: No Symptoms - Patient Data Vital Signs - Most Recent: Last Vital Signs Temp 36.5 C 06/17/20 12:00 Pulse 63 06/17/20 12:00 Resp 16 06/17/20 12:00 BP 102/53 L 06/17/20 12:00 Pulse Ox 96 06/17/20 12:00 Weight - Most Recent: 170 lb I&O - Last 24 Hours: Intake & Output 06/16/20 06/17/20 06/17/20 22:59 06:59 14:59 Intake Total 1000 Output Total 625 3450 Balance -625 -1140 Lab Results - Last 24 Hours: Laboratory Results - last 24 hr 06/16/20 06/17/20 Range/Units 06:39 05:30 Hgb 11.0 L (12.0-16.0) g/dL Hct 33.0 L (36.0-46.0) % Cord ABG pH [employer] Cord ABG Base Excess [employer] Cord VBG pH 7.374 (7.25-7.45) Cord VBG Base Excess -3 (-10--2) Med Orders - Current: Current Medications Bisacodyl (Dulcolax) 10 mg RECTAL ONETIME PRN PRN Reason: Constipation Diphenhydramine HCl (Benadryl) 25 mg IVPUSH Q6H PRN PRN Reason: Itching or Nausea Docusate Sodium (Colace) 100 mg PO BID [facility] Last Admin: 06/17/20 09:01 Dose: 100 mg Documented by: Emollient Ointment (Lansinoh Hpa) 0 gm TOP ASDIRECTED PRN PRN Reason: Sore Nipples Fentanyl (Sublimaze) 50 mcg IVPUSH Q1H PRN PRN Reason: Pain (severe 7-10) Lactated Ringer's (Ringers, Lactated) 1,000 mls @ 999 mls/hr IV ASDIRECTED [facility] Last Admin: 06/16/20 05:47 Dose: 999 mls/hr Documented by: Lactated Ringer's (Ringers, Lactated) 1,000 mls @ 500 mls/hr IV BOLUS [facility] Oxytocin/Sodium Chloride (Oxytocin 30 Unit/500 Ml-Ns) 30 unit in 500 mls @ 250 mls/hr IV TITRATE [facility] Lactated Ringer's (Ringers, Lactated) 1,000 mls @ 125 mls/hr IV ASDIRECTED [facility] Last Admin: 06/16/20 09:22 Dose: 125 mls/hr Documented by: Tranexamic Acid 1,000 mg/ (Sodium Chloride) 110 mls @ 660 mls/hr IV ONETIME PRN PRN Reason: Bleeding Ibuprofen (Motrin) 800 mg PO Q8H PRN PRN Reason: mild pain or fever Last Admin: 06/17/20 05:37 Dose: 800 mg Documented by: Methylergonovine Maleate (Methergine) 0.2 mg IM ONETIME PRN PRN Reason: Excessive Vaginal Bleeding Misoprostol (Cytotec) 1,000 mcg RECTAL ONETIME PRN PRN Reason: excessive bleeding Morphine Sulfate (Morphine) 2 mg IVPUSH Q4H PRN PRN Reason: Pain Nalbuphine HCl (Nubain) 5 mg IVPUSH ASDIRECTED PRN PRN Reason: Itching Last Admin: 06/16/20 09:22 Dose: 5 mg Documented by: Ondansetron HCl (Zofran) 4 mg IVPUSH Q6H PRN PRN Reason: Nausea Ondansetron HCl (Zofran) 4 mg IVPUSH Q4H PRN PRN Reason: Nausea/Vomiting Last Admin: 06/16/20 12:48 Dose: 4 mg Documented by: Oxycodone/Acetaminophen (Percocet 325-5 Mg) 2 tab PO Q6H PRN PRN Reason: Pain (moderate 4-6) Oxycodone/Acetaminophen (Percocet 325-5 Mg) 1 tab PO Q4H PRN PRN Reason: Pain (moderate 4-6) Last Admin: 06/17/20 09:01 Dose: 1 tab Documented by: Oxycodone/Acetaminophen (Percocet 325-5 Mg) 2 tab PO Q4H PRN PRN Reason: Pain (moderate 4-6) Oxytocin (Pitocin) 10 unit IM ASDIRECTED PRN PRN Reason: Excessive Vaginal Bleeding Sodium Chloride (Saline Flush) 10 ml FLUSH ASDIRECTED PRN PRN Reason: Keep Vein Open Sodium Chloride (Saline Flush) 2.5 ml FLUSH ASDIRECTED PRN PRN Reason: Keep Vein Open Sodium Chloride (Normal Saline) 10 ml IV ASDIRECTED PRN PRN Reason: IV Use Discontinued Medications Cefazolin Sodium (Ancef) Confirm Administered Dose 2 gm .ROUTE .STK-MED ONE Stop: 06/16/20 05:16 Citric Acid/Sodium Citrate (Bicitra Solution) 30 ml PO ONETIME ONE Stop: 06/16/20 04:56 Last Admin: 06/17/20 08:11 Dose: Not Given Documented by: Diphenhydramine HCl (Benadryl) 25 mg IVPUSH Q4H PRN PRN Reason: Itching Stop: 06/17/20 05:54 Cefazolin Sodium/Dextrose 2 gm (/ Premix) 50 mls @ 100 mls/hr IV ONETIME ONE Stop: 06/16/20 05:24 Last Admin: 06/17/20 08:11 Dose: Not Given Documented by: Sodium Chloride (Normal Saline) Confirm Administered Dose 20 mls @ as directed .ROUTE .STK-MED ONE Stop: 06/16/20 05:16 Morphine Sulfate (Duramorph Pf) Confirm Administered Dose 10 mg .ROUTE .STK-MED ONE Stop: 06/16/20 05:07 Morphine Sulfate (Morphine) 10 mg IVPUSH Q4H PRN PRN Reason: Pain Naloxone HCl (Narcan) 0.1 mg IVPUSH ONETIME PRN PRN Reason: Respiratory Depression Stop: 06/17/20 05:54 Ondansetron HCl (Zofran) Confirm Administered Dose 4 mg .ROUTE .STK-MED ONE Stop: 06/16/20 05:10 Oxytocin (Pitocin) Confirm Administered Dose 20 unit .ROUTE .STK-MED ONE Stop: 06/16/20 05:10 Phenylephrine HCl (Yvan-Synephrine) Confirm Administered Dose 10 mg .ROUTE .STK- MED ONE Stop: 06/16/20 05:10 - Infant Interaction Disposition, : in Room with Family Infant Interaction: Holding Infant Feeding: Bottle Fed Infant Support Person: Significant Other - Recovery Exam Fundal Tone: Firm Fundal Level: 1 Fingerbreadths Below Umbilicus Fundal Placement: Midline Lochia Amount: Scant Lochia Color: Rubra/Red Perineum Description: Intact, Minimal Bruising/Swelling Episiotomy/Laceration: None Bladder Status: Voiding Urinary Elimination: Voided Other Urinary Elimination, : due to void catheter removed - Exam General: Alert, Oriented, Cooperative, No Acute Distress HEENT: Pupils Equal, Pupils Reactive Neck: Supple, Trachea Midline Lungs: Normal Respiratory Effort GI/Abdominal Exam: Soft, Non-Tender, No Distention Extremities: Normal Inspection, Normal Range of Motion, Non-Tender, No Pedal Edema Skin: Warm, Dry, Intact Wound/Incisions: Healing Well Psy/Mental Status: Alert, Normal Affect, Normal Mood - Problem List Review Problem List Initiated/Reviewed/Updated: Yes - My Orders Last 24 Hours: My Active Orders 06/16/20 14:48 Morphine 2 mg IVPUSH Q4H PRN - Assessment Assessment:: 19 year old POD1 s/p repeat LTCS, stable and recovering well - Plan Plan:: Routine cares * Rh positive, rubella immune, GBS negative * Encourage ambulation and fluid intake when able * Regular diet with tolerating PO * Pain controlled * Hgb 11, Bleeding light, no s/s of anemia * Desires Depo provera for contraception. Rx sent to patient's pharmacy and she is to bring the medication to her postoperative appointment for administration Gestational thrombocytopenia * Platelets on admission were 147,000, stable today at 139,000 * No Toradol History of depression * Denies symptoms today * Monitor closely while inpatient Dispo: Baby being monitored for bilirubin and blood sugars, plan for discharge h ome tomorrow
[2020-06-18] MEDS: Ibuprofen 800 MG Tab PO PRN ×2 (03:38→14:49)
[2020-06-18] MEDS: Docusate Sodium 100 MG Cap PO SCH (08:12)
--- NOTE | 2020-06-18 11:24 | PCM.PNPP ---
- General Info Date of Service: 06/18/20 Functional Status: Reports: Pain Controlled, Tolerating Diet, Ambulating, Urinating, Other (Passing flatus) - Review of Systems General: Reports: No Symptoms HEENT: Reports: No Symptoms Pulmonary: Reports: No Symptoms Cardiovascular: Reports: No Symptoms Gastrointestinal: Reports: No Symptoms Genitourinary: Reports: No Symptoms 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: Reports: No Symptoms Skin: Reports: No Symptoms Neurological: Reports: No Symptoms Psychiatric: Reports: No Symptoms - Patient Data Vital Signs - Most Recent: Last Vital Signs Temp 36.3 C 06/18/20 07:50 Pulse 63 06/18/20 07:50 Resp 18 06/18/20 07:50 BP 107/69 06/18/20 07:50 Pulse Ox 97 06/18/20 07:50 Weight - Most Recent: 170 lb Lab Results - Last 24 Hours: Laboratory Results - last 24 hr 06/17/20 06/17/20 Range/Units 05:30 05:30 WBC 11.59 H (4.0-11.0) K/uL RBC 3.33 L (4.30-5.90) M/uL Hgb Cancelled 11.0 L Hct Cancelled 32.3 L MCV 97.0 (80.0-98.0) fL MCH 33.0 H (27.0-32.0) pg MCHC 34.1 (31.0-37.0) g/dL RDW Std Deviation 46.7 (28.0-62.0) fl RDW Coeff of Addison 13 (11.0-15.0) % Plt Count 139 L (150-400) K/uL MPV 11.20 (7.40-12.00) fL Nucleated RBC % 0.0 /100WBC Nucleated RBCs # 0 K/uL Med Orders - Current: Current Medications Bisacodyl (Dulcolax) 10 mg RECTAL ONETIME PRN PRN Reason: Constipation Diphenhydramine HCl (Benadryl) 25 mg IVPUSH Q6H PRN PRN Reason: Itching or Nausea Docusate Sodium (Colace) 100 mg PO BID [facility] Last Admin: 06/18/20 08:12 Dose: 100 mg Documented by: Emollient Ointment (Lansinoh Hpa) 0 gm TOP ASDIRECTED PRN PRN Reason: Sore Nipples Last Admin: 06/18/20 08:43 Dose: 1 gm Documented by: Fentanyl (Sublimaze) 50 mcg IVPUSH Q1H PRN PRN Reason: Pain (severe 7-10) Lactated Ringer's (Ringers, Lactated) 1,000 mls @ 999 mls/hr IV ASDIRECTED [facility] Last Admin: 06/16/20 05:47 Dose: 999 mls/hr Documented by: Lactated Ringer's (Ringers, Lactated) 1,000 mls @ 500 mls/hr IV BOLUS [facility] [place] Oxytocin/Sodium Chloride (Oxytocin 30 Unit/500 Ml-Ns) 30 unit in 500 mls @ 250 mls/hr IV TITRATE [facility] [place] Lactated Ringer's (Ringers, Lactated) 1,000 mls @ 125 mls/hr IV ASDIRECTED [facility] [place] Last Admin: 06/16/20 09:22 Dose: 125 mls/hr Documented by: Tranexamic Acid 1,000 mg/ (Sodium Chloride) 110 mls @ 660 mls/hr IV ONETIME PRN PRN Reason: Bleeding Ibuprofen (Motrin) 800 mg PO Q8H PRN PRN Reason: mild pain or fever Last Admin: 06/18/20 03:38 Dose: 800 mg Documented by: Methylergonovine Maleate (Methergine) 0.2 mg IM ONETIME PRN PRN Reason: Excessive Vaginal Bleeding Misoprostol (Cytotec) 1,000 mcg RECTAL ONETIME PRN PRN Reason: excessive bleeding Morphine Sulfate (Morphine) 2 mg IVPUSH Q4H PRN PRN Reason: Pain Nalbuphine HCl (Nubain) 5 mg IVPUSH ASDIRECTED PRN PRN Reason: Itching Last Admin: 06/16/20 09:22 Dose: 5 mg Documented by: Ondansetron HCl (Zofran) 4 mg IVPUSH Q6H PRN PRN Reason: Nausea Ondansetron HCl (Zofran) 4 mg IVPUSH Q4H PRN PRN Reason: Nausea/Vomiting Last Admin: 06/16/20 12:48 Dose: 4 mg Documented by: Oxycodone/Acetaminophen (Percocet 325-5 Mg) 2 tab PO Q6H PRN PRN Reason: Pain (moderate 4-6) Oxycodone/Acetaminophen (Percocet 325-5 Mg) 1 tab PO Q4H PRN PRN Reason: Pain (moderate 4-6) Last Admin: 06/17/20 21:04 Dose: 1 tab Documented by: Oxycodone/Acetaminophen (Percocet 325-5 Mg) 2 tab PO Q4H PRN PRN Reason: Pain (moderate 4-6) Last Admin: 06/18/20 08:11 Dose: 2 tab Documented by: Oxytocin (Pitocin) 10 unit IM ASDIRECTED PRN PRN Reason: Excessive Vaginal Bleeding Sodium Chloride (Saline Flush) 10 ml FLUSH ASDIRECTED PRN PRN Reason: Keep Vein Open Sodium Chloride (Saline Flush) 2.5 ml FLUSH ASDIRECTED PRN PRN Reason: Keep Vein Open Sodium Chloride (Normal Saline) 10 ml IV ASDIRECTED PRN PRN Reason: IV Use Discontinued Medications Cefazolin Sodium (Ancef) Confirm Administered Dose 2 gm .ROUTE .STK-MED ONE Stop: 06/16/20 05:16 Citric Acid/Sodium Citrate (Bicitra Solution) 30 ml PO ONETIME ONE Stop: 06/16/20 04:56 Last Admin: 06/17/20 08:11 Dose: Not Given Documented by: Diphenhydramine HCl (Benadryl) 25 mg IVPUSH Q4H PRN PRN Reason: Itching Stop: 06/17/20 05:54 Cefazolin Sodium/Dextrose 2 gm (/ Premix) 50 mls @ 100 mls/hr IV ONETIME ONE Stop: 06/16/20 05:24 Last Admin: 06/17/20 08:11 Dose: Not Given Documented by: Sodium Chloride (Normal Saline) Confirm Administered Dose 20 mls @ as directed .ROUTE .STK-MED ONE Stop: 06/16/20 05:16 Morphine Sulfate (Duramorph Pf) Confirm Administered Dose 10 mg .ROUTE .STK-MED ONE Stop: 06/16/20 05:07 Morphine Sulfate (Morphine) 10 mg IVPUSH Q4H PRN PRN Reason: Pain Naloxone HCl (Narcan) 0.1 mg IVPUSH ONETIME PRN PRN Reason: Respiratory Depression Stop: 06/17/20 05:54 Ondansetron HCl (Zofran) Confirm Administered Dose 4 mg .ROUTE .STK-MED ONE Stop: 06/16/20 05:10 Oxytocin (Pitocin) Confirm Administered Dose 20 unit .ROUTE .STK-MED ONE Stop: 06/16/20 05:10 Phenylephrine HCl (Yvan-Synephrine) Confirm Administered Dose 10 mg .ROUTE .STK- MED ONE Stop: 06/16/20 05:10 - Interaction Infant Disposition, : [place] in Room with Family Infant Interaction: Holding Infant Feeding: Breastfed ; Nursed Well Support Person: Significant Other - Recovery Exam Fundal Tone: Firm Fundal Level: 1 Fingerbreadths Below Umbilicus Fundal Placement: Midline Lochia Amount: Scant Lochia Color: Rubra/Red Perineum Description: Intact, Minimal Bruising/Swelling Episiotomy/Laceration: None Bladder Status: Voiding Urinary Elimination: Voided Other Urinary Elimination, : due to void catheter removed - Exam General: Alert, Oriented, Cooperative, No Acute Distress HEENT: Pupils Equal, Pupils Reactive Neck: Supple, Trachea Midline, No JVD Lungs: Normal Respiratory Effort GI/Abdominal Exam: Soft, Non-Tender, No Organomegaly, No Distention Extremities: Normal Inspection, Normal Range of Motion, Non-Tender, No Pedal Edema Skin: Warm, Dry, Intact Wound/Incisions: Healing Well Neurological: No New Focal Deficit Psy/Mental Status: Alert, Normal Affect, Normal Mood - Problem List Review Problem List Initiated/Reviewed/Updated: Yes - My Orders Last 24 Hours: My Active Orders 06/18/20 11:22 Ready for Discharge [RC] PER UNIT ROUTINE - Assessment Assessment:: 19 year old POD2 s/p repeat LTCS, stable and recovering well - Plan Plan:: Routine cares * Rh positive, rubella immune, GBS negative * Encourage ambulation and fluid intake when able * Regular diet with tolerating PO * Pain controlled * Hgb 11, Bleeding light, no s/s of anemia * Desires Depo provera for contraception. Rx sent to patient's pharmacy and she is to bring the medication to her postoperative appointment for administration Gestational thrombocytopenia * Platelets on admission were 147,000, stable today at 139,000 * No Toradol History of depression * Denies symptoms today * Monitor closely while inpatient Dispo: Stable for discharge home today, reviewed postop care instructions
== END 2020-06-18 15:11 | disposition home or self-care (01) | DRG 540 ==
LOC: MW.OBCHECK 03:20 → MW.OB 03:22 → MW.OBCHECK 04:55 → MW.OB 04:55 → OBSVTOIN 04:56 → MW.OB 11:14
PROVIDERS: ADMIT Obstetrics & Gynecology; ATTEND Obstetrics & Gynecology
PROC: 10D00Z1 Extraction of Products of Conception, Low, Open Approach (ICD-10-PCS; principal; 2020-06-16)
DX: O34.211 Maternal care for low transverse scar from previous cesarean delivery (principal); O99.12 Other diseases of the blood and blood-forming organs and certain disorders involving the immune mechanism complicating childbirth; D69.6 Thrombocytopenia, unspecified; Z20.828 Contact with and (suspected) exposure to other viral communicable diseases; Z37.0 Single live birth; Z3A.39 39 weeks gestation of pregnancy; Z87.891 Personal history of nicotine dependence
CPT/HCPCS: 36415; 59025; 81003; 82803; 85027; 86592; 86850; 86900; 86901; A9270-GY; J0690; J2270; J2300; J2370; J2405; J2590; J7120; U0002